=== PATIENT | male | born 1985 | race Caucasian/White ===

== ENCOUNTER 2017-08-16 14:42 | Emergency (ER) | payer SELFPAY ==
[2017-08-16] MEDS ORDERED: Sodium Chloride 0.9% 10 ML Syringe FLUSH PRN (14:45)
[2017-08-16] MEDS ORDERED: Sodium Chloride 0.9% 1,000 ML IV SCH (14:45)
[2017-08-16] MEDS ORDERED: Haloperidol Lactate 5 MG/ML SDV IVPUSH ONE (14:48)
[2017-08-16] MEDS ORDERED: Haloperidol Lactate 5 MG/ML SDV ONE ×2 (14:53→15:03)
[2017-08-16] MEDS ORDERED: LORazepam 2 MG/ML MDV IVPUSH ONE (14:57)
[2017-08-16] MEDS ORDERED: LORazepam 2 MG/ML MDV ONE (15:03)
[2017-08-16] MEDS ORDERED: Sodium Chloride 0.9% 2,000 ML IV ONE (15:11)
[2017-08-16] MEDS ORDERED: Haloperidol Lactate 5 MG/ML SDV IVPUSH STA (15:43)
[2017-08-16] MEDS ORDERED: Sodium Chloride 0.9% 1,000 ML ONE (16:07)
--- NOTE | 2017-08-16 17:46 | EDM.PDOC ---
ED HPI GENERAL MEDICAL PROBLEM - General Chief Complaint: Chest Pain Stated Complaint: [facility] Time Seen by Provider: 08/16/17 14:49 Source of Information: Reports: EMS History Limitations: Reports: Altered Mental Status - History of Present Illness INITIAL COMMENTS - FREE TEXT/NARRATIVE: The patient presents by [place] [facility] for chest pain. He was at a house in [place] with lots of people that are not family. He was holding his chest and combative. They assumed he was having a heart attack so they called 911. Paramedics could not get an EKG because he was moving around and not cooperating. He was given 2mg of versed intranasal. He does have an IV. He was not cooperative in the ambulance but he was talking. When he got to the ER , he would localize to pain but he was not talking and he did not have his eyes open. The paramedics say the house he was at was known for meth. Onset: Gradual Duration: Hour(s): Location: Reports: Chest Severity: Severe Improves with: Reports: None Worsens with: Reports: None Associated Symptoms: Reports: Chest Pain - Related Data Allergies Allergy/AdvReac Type Severity Reaction Status Date / Time No Known Allergies Allergy Verified 07/15/15 17:20 Home Meds: Home Meds Azithromycin [Z-Tomasz] 250 mg PO ASDIRECTED #1 dosepk 04/27/16 [Rx] Dextromethorphan/guaiFENesin [Robitussin DM] 10 ml PO TID #1 cup 04/27/16 [Rx] Potassium Chloride 20 meq PO DAILY #30 tablet.er 08/16/17 [Rx] Past Medical History - Past Health History Medical/Surgical History: Denies Medical/Surgical History Respiratory History: Reports: Pneumonia, Recurrent Social & Family History - Tobacco Use Smoking Status *Q: Unknown Ever Smoked Years of Tobacco use: 10 Packs/Tins Daily: 5 Second Hand Smoke Exposure: No - Alcohol Use Days Per Week of Alcohol Use: 0 - Recreational Drug Use Recreational Drug Use: No Recreational Drug Type: Reports: Methamphetamine Recreational Drug Use Frequency: Monthly ED ROS GENERAL - Review of Systems Review Of Systems: Unable To Obtain ED EXAM, GENERAL - Physical Exam Exam: See Below Exam Limited By: Altered Mental Status General Appearance: Obtunded Ears: Normal External Exam Nose: Normal Inspection Throat/Mouth: Other (Dry mucus membranes with what appears to be dark stains from dip) Head: Atraumatic, Normocephalic Neck: Normal Inspection Respiratory/Chest: No Respiratory Distress, Lungs Clear, Normal Breath Sounds Cardiovascular: Regular Rate, Rhythm, No Edema, No Murmur GI/Abdominal: Soft, Non-Tender, No Organomegaly, No Mass Back Exam: Normal Inspection Extremities: Normal Inspection Neurological: Other (Obtuded) EKG INTERPRETATION EKG Date: 08/16/17 Time: 03:04 Rhythm: NSR Rate (Beats/Min): 97 [place]: Normal P-Wave: Present QRS: Normal ST-T: Normal QT: Prolonged Course - Vital Signs Last Recorded V/S: Last Vital Signs Temp 97.2 F 08/16/17 15:12 Pulse 74 08/16/17 18:16 Resp 20 08/16/17 18:16 BP 105/56 L 08/16/17 18:15 Pulse Ox 97 08/16/17 18:16 - Orders/Labs/Meds Orders: Active Orders 24 hr Category Date Time Status Cardiac Monitoring [RC] . DIRECTED Care 08/16/17 14:45 Active EKG Documentation Completion [RC] ASDIRECTED Care 08/16/17 15:10 Inactive EKG Documentation Completion [RC] STAT Care 08/16/17 14:47 Active Peripheral IV Care [RC] . DIRECTED Care 08/16/17 14:47 Active Chest 1V Frontal [CR] Stat Exams 08/16/17 14:47 Taken Potassium Chloride [KCl 10 MEQ in Water 100 ML] 10 meq Med 08/16/17 18:15 Active Premix Bag 1 bag IV Q1H Sodium Chloride 0.9% [Normal Saline] 1,000 ml Med 08/16/17 14:45 Active IV ASDIRECTED Sodium Chloride 0.9% [Saline Flush] Med 08/16/17 14:45 Active 10 ml FLUSH ASDIRECTED PRN Peripheral IV Insertion Adult [OM.PC] Stat Oth 08/16/17 14:45 Ordered EKG 12 Lead [EK] Stat Ther 08/16/17 15:10 Stop Req Medication Orders Sodium Chloride (Normal Saline) 1,000 mls @ 125 mls/hr IV ASDIRECTED ESME Last Admin: 08/16/17 16:13 Dose: 125 mls/hr Potassium Chloride 10 meq/ (Premix) 100 mls @ 100 mls/hr IV Q1H ESME Stop: 08/16/17 22:14 Last Admin: 08/16/17 18:22 Dose: 100 mls/hr Sodium Chloride (Saline Flush) 10 ml FLUSH ASDIRECTED PRN PRN Reason: Keep Vein Open Last Admin: 08/16/17 15:20 Dose: 10 ml Labs: Laboratory Tests 08/16/17 08/16/17 08/16/17 Range/Units 15:10 15:10 15:10 WBC 5.87 (4.23-9.07) K/mm3 RBC 4.57 L (4.63-6.08) M/mm3 Hgb 14.3 (13.7-17.5) gm/L Hct 40.0 L (40.1-51.0) % MCV 87.5 (79.0-92.2) fl MCH 31.3 (25.7-32.2) pg MCHC 35.8 H (32.2-35.5) g/dl RDW Std Deviation 38.1 (35.1-43.9) fL Plt Count 257 (163-337) K/mm3 MPV 10.1 (9.4-12.3) fl Neut % (Auto) 61.7 (34.0-67.9) % Lymph % (Auto) 23.7 (21.8-53.1) % [place] % (Auto) 11.9 (5.3-12.2) % Eos % (Auto) 2.0 (0.8-7.0) Baso % (Auto) 0.5 (0.1-1.2) % Neut # (Auto) 3.62 (1.78-5.38) K/mm3 Lymph # (Auto) 1.39 (1.32-3.57) K/mm3 [place] # (Auto) 0.70 (0.30-0.82) K/mm3 Eos # (Auto) 0.12 (0.04-0.54) K/mm3 Baso # (Auto) 0.03 (0.01-0.08) K/mm3 D-Dimer, Quantitative 0.19 (0.19-0.59) mg/L Sodium 138 (136-145) mEq/L Potassium 2.9 L (3.5-5.1) mEq/L Chloride 102 (98-107) mEq/L Carbon Dioxide 22 (21-32) mEq/L Anion Gap 16.9 H (5-15) BUN 17 (7-18) mg/dL Creatinine 1.1 (0.7-1.3) mg/dL Est Cr Clr Drug Dosing 100.47 mL/min Estimated GFR (MDRD) > 60 (>60) mL/min BUN/Creatinine Ratio 15.5 (14-18) Glucose 105 (74-106) mg/dL Calcium 8.0 L (8.5-10.1) mg/dL Total Bilirubin 1.5 H (0.2-1.0) mg/dL AST 35 (15-37) U/L ALT 60 (16-63) U/L Alkaline Phosphatase 65 (46-116) U/L Troponin I < 0.017 (0.00-0.056) ng/mL Total Protein 7.0 (6.4-8.2) g/dl Albumin 3.6 (3.4-5.0) g/dl Globulin 3.4 gm/dL Albumin/Globulin Ratio 1.1 (1-2) Urine Opiates Screen (NEGATIVE) Ur Buprenorphine Scrn (NEGATIVE) Ur Oxycodone Screen (NEGATIVE) Urine Methadone Screen (NEGATIVE) Ur Propoxyphene Screen (NEGATIVE) Ur Barbiturates Screen (NEGATIVE) Ur Tricyclics Screen (NEGATIVE) Ur Phencyclidine Scrn (NEGATIVE) Ur Amphetamine Screen (NEGATIVE) U Methamphetamines Scrn (NEGATIVE) U Benzodiazepines Scrn (NEGATIVE) U Cocaine Metab Screen (NEGATIVE) U Marijuana (THC) Screen (NEGATIVE) Ethyl Alcohol 0.00 (0.00) gm% 08/16/17 Range/Units 16:08 WBC (4.23-9.07) K/mm3 RBC (4.63-6.08) M/mm3 Hgb (13.7-17.5) gm/L Hct (40.1-51.0) % MCV (79.0-92.2) fl MCH (25.7-32.2) pg MCHC (32.2-35.5) g/dl RDW Std Deviation (35.1-43.9) fL Plt Count (163-337) K/mm3 MPV (9.4-12.3) fl Neut % (Auto) (34.0-67.9) % Lymph % (Auto) (21.8-53.1) % [place] % (Auto) (5.3-12.2) % Eos % (Auto) (0.8-7.0) Baso % (Auto) (0.1-1.2) % Neut # (Auto) (1.78-5.38) K/mm3 Lymph # (Auto) (1.32-3.57) K/mm3 [place] # (Auto) (0.30-0.82) K/mm3 Eos # (Auto) (0.04-0.54) K/mm3 Baso # (Auto) (0.01-0.08) K/mm3 D-Dimer, Quantitative (0.19-0.59) mg/L Sodium (136-145) mEq/L Potassium (3.5-5.1) mEq/L Chloride (98-107) mEq/L Carbon Dioxide (21-32) mEq/L Anion Gap (5-15) BUN (7-18) mg/dL Creatinine (0.7-1.3) mg/dL Est Cr Clr Drug Dosing mL/min Estimated GFR (MDRD) (>60) mL/min BUN/Creatinine Ratio (14-18) Glucose (74-106) mg/dL Calcium (8.5-10.1) mg/dL Total Bilirubin (0.2-1.0) mg/dL AST (15-37) U/L ALT (16-63) U/L Alkaline Phosphatase (46-116) U/L Troponin I (0.00-0.056) ng/mL Total Protein (6.4-8.2) g/dl Albumin (3.4-5.0) g/dl Globulin gm/dL Albumin/Globulin Ratio (1-2) Urine Opiates Screen Negative (NEGATIVE) Ur Buprenorphine Scrn Negative (NEGATIVE) Ur Oxycodone Screen Negative (NEGATIVE) Urine Methadone Screen Negative (NEGATIVE) Ur Propoxyphene Screen Negative (NEGATIVE) Ur Barbiturates Screen Negative (NEGATIVE) Ur Tricyclics Screen Negative (NEGATIVE) Ur Phencyclidine Scrn Negative (NEGATIVE) Ur Amphetamine Screen Presumptive positive H (NEGATIVE) U Methamphetamines Scrn Presumptive positive H (NEGATIVE) U Benzodiazepines Scrn Negative (NEGATIVE) U Cocaine Metab Screen Negative (NEGATIVE) U Marijuana (THC) Screen Presumptive positive H (NEGATIVE) Ethyl Alcohol (0.00) gm% Meds: Medications Generic Name Dose Route Start Last Admin Trade Name Freq PRN Reason Stop Dose Admin Sodium Chloride 1,000 mls @ 125 mls/hr 08/16/17 14:45 08/16/17 16:13 Normal Saline IV 125 mls/hr ASDIRECTED ESME Administration Potassium Chloride 10 meq/ 100 mls @ 100 mls/hr 08/16/17 18:15 08/16/17 18:22 Premix IV 08/16/17 22:14 100 mls/hr Q1H ESME Administration Sodium Chloride 10 ml 08/16/17 14:45 08/16/17 15:20 Saline Flush FLUSH 10 ml ASDIRECTED PRN Administration Keep Vein Open Discontinued Medications Generic Name Dose Route Start Last Admin Trade Name Marcelino PRN Reason Stop Dose Admin Haloperidol Lactate 5 mg 08/16/17 14:48 08/16/17 15:00 Haldol IVPUSH 08/16/17 14:49 5 mg ONETIME ONE Administration Haloperidol Lactate Confirm 08/16/17 14:53 08/16/17 15:20 Haldol Administered 08/16/17 14:54 Not Given Dose 5 mg .ROUTE .STK-MED ONE Haloperidol Lactate Confirm 08/16/17 15:03 08/16/17 15:20 Haldol Administered 08/16/17 15:04 Not Given Dose 5 mg .ROUTE .STK-MED ONE Haloperidol Lactate 5 mg 08/16/17 15:43 08/16/17 14:50 Haldol IVPUSH 08/16/17 15:44 5 mg ONETIME STA Administration Sodium Chloride 2,000 mls @ 1,000 mls/hr 08/16/17 15:11 08/16/17 15:00 Normal Saline IV 08/16/17 17:10 1,000 mls/hr ONETIME ONE Administration Sodium Chloride Confirm 08/16/17 16:07 08/16/17 16:14 Normal Saline Administered 08/16/17 16:08 Not Given Dose 1,000 mls @ as directed .ROUTE .STK-MED ONE Lorazepam Confirm 08/16/17 15:03 08/16/17 15:20 Ativan Administered 08/16/17 15:04 Not Given Dose 2 mg .ROUTE .STK-MED ONE Lorazepam 2 mg 08/16/17 14:57 08/16/17 15:00 Ativan IVPUSH 08/16/17 14:58 2 mg ONETIME ONE Administration - Re-Assessments/Exams Free Text/Narrative Re-Assessment/Exam: 08/16/17 17:46 I ordered an IV NS 2L bolus, EKG, CXR, and labs. The patient woke up but he was confused and combative. I was worried about his safety and the safety of my staff so I ordered haldol 10mg IV and ativan 2mg IV. That did calm him down. His EKG shows a NSR with no acute changes. His CBC is negative. His D- dimer was negative. His K was low at 2.9. His anion gap was 16.9. His troponin was negative. His creatinine was normal at 1.1. His UDS was presumptive positive for meth and amphetamines and marijuana. His ETOH is negative. 08/16/17 19:10 He is sleeping now. I will let him rest and discharge him home after awhile. Departure - Departure Time of Disposition: 19:10 Disposition: Home, Self-Care 01 Condition: Good Clinical Impression: Methamphetamine abuse, Methamphetamine intoxication, Hypokalemia Prescriptions: Potassium Chloride 20 meq PO DAILY #30 tablet.er Referrals: PCP,None [Primary Care Provider] - Elpidio Armstrong [Physician] - Forms: ED Department Discharge Additional Instructions: Take the potassium daily. Have your potassium checked in 1 week. Please return if you are worse. Stop taking methamphetamines. - My Orders Last 24 Hours: My Active Orders 08/16/17 14:45 Cardiac Monitoring [RC] . DIRECTED Sodium Chloride 0.9% [Normal Saline] 1,000 ml IV ASDIRECTED Sodium Chloride 0.9% [Saline Flush] 10 ml FLUSH ASDIRECTED PRN Peripheral IV Insertion Adult [OM.PC] Stat 08/16/17 14:47 EKG Documentation Completion [RC] STAT Peripheral IV Care [RC] . DIRECTED Chest 1V Frontal [CR] Stat 08/16/17 15:10 EKG Documentation Completion [RC] ASDIRECTED EKG 12 Lead [EK] Stat 08/16/17 18:15 Potassium Chloride [KCl 10 MEQ in Water 100 ML] 10 meq Premix Bag 1 bag IV Q1H - Assessment/Plan Last 24 Hours: My Active Orders 08/16/17 14:45 Cardiac Monitoring [RC] . DIRECTED Sodium Chloride 0.9% [Normal Saline] 1,000 ml IV ASDIRECTED Sodium Chloride 0.9% [Saline Flush] 10 ml FLUSH ASDIRECTED PRN Peripheral IV Insertion Adult [OM.PC] Stat 08/16/17 14:47 EKG Documentation Completion [RC] STAT Peripheral IV Care [RC] . DIRECTED Chest 1V Frontal [CR] Stat 08/16/17 15:10 EKG Documentation Completion [RC] ASDIRECTED EKG 12 Lead [EK] Stat 08/16/17 18:15 Potassium Chloride [KCl 10 MEQ in Water 100 ML] 10 meq Premix Bag 1 bag IV Q1H
[2017-08-16] MEDS: Potassium Chloride 10 MEQ in Premix Bag 1 BAG IV SCH ×4 (18:22→21:25)
[2017-08-17 02:23] VITALS: BP 106/58
--- NOTE | 2017-08-17 13:02 | CR ---
Chest: Portable supine view of the chest was obtained. Comparison: Prior chest x-ray of 04/27/16. Heart size and mediastinum are normal. Lungs are clear. Minimal scoliosis is noted within the spine. No acute bony abnormality is seen. Impression: 1. Nothing acute is seen on portable supine chest x-ray. Diagnostic code #2
== END 2017-08-17 08:46 | disposition home or self-care (01) ==
LOC: JD.ED 14:42
DX: E87.6 Hypokalemia (principal); F15.129 Other stimulant abuse with intoxication, unspecified; Z87.01 Personal history of pneumonia (recurrent); Z79.899 Other long term (current) drug therapy
CPT/HCPCS: 36415; 71045; 80053; 80306; 84484; 85025; 85379; 93005; 96361; 96365; 96366; 96375; 99285; G0480; J1630; J2060; J3480; J7040; J7050; P9612

== ENCOUNTER 2018-11-18 13:52 | Day surgery (SDC) | payer SELFPAY ==
[2018-11-18] MEDS ORDERED: LORazepam 2 MG/ML SDV IVPUSH ONE (14:27)
[2018-11-18] MEDS ORDERED: HYDROmorphone 1 MG/ML Syringe IVPUSH ONE (14:27)
[2018-11-18] MEDS ORDERED: Diphtheria,Pertussis(Acell),Tetanus Vaccine 0.5 ML Syringe IM ONE (14:28)
[2018-11-18] MEDS ORDERED: Metoclopramide 10 MG/2 ML SDV IVPUSH ONE (14:28)
[2018-11-18] MEDS ORDERED: Sodium Chloride 0.9% 1,000 ML IV SCH (14:30)
[2018-11-18] MEDS ORDERED: cefTRIAXone 2 GM in Sodium Chloride 0.9% 100 ML IV SCH (14:30)
--- NOTE | 2018-11-18 14:31 | EDM.PDOC ---
ED HPI GENERAL MEDICAL PROBLEM - General Chief Complaint: Bite:Animal, Insect Stated Complaint: ATTACKED BY A PIT BULL Time Seen by Provider: 11/18/18 14:25 Source of Information: Reports: Patient History Limitations: Reports: No Limitations - History of Present Illness INITIAL COMMENTS - FREE TEXT/NARRATIVE: 33-year-old male presents to the ED after being attacked by people in his yard while he was out doing yard work. Not sure whose pit bull it is. Police on scene and animal control is trying to catch the animal for quarantine purposes. Patient had a friend who pulled the dog away by grabbing its collar. Mr. Christine suffered deep bites to the anterior medial aspects of both thighs worse on the right side as compared to the left. In tissue from the aggressive dog bite. No evidence of arterial bleeding from the right thigh. Numerous puncture wounds and one that will require repair on the left medial thigh. He is unsure when his last tetanus diphtheria pertussis vaccine would've been updated. He has no known allergies. He states he has a family history of penicillin allergy. Onset: Today Onset Date: 11/18/18 Onset Time: 13:50 Duration: Minutes: Location: Reports: Lower Extremity, Left (Anterior medial left proximal thigh), Lower Extremity, Right (Anterior medial right proximal thigh.) Quality: Reports: Ache, Burning, Throbbing Severity: Severe Improves with: Reports: None (9 out of 10) Worsens with: Reports: None Context: Reports: Trauma (Attacked by a pit bulldog that is unknown to him.). Denies: Activity, Exercise, Lifting, Sick Contact Associated Symptoms: Reports: Other (Denies any injuries to his hands.) Treatments [employer] TECHNICIAN: Reports: Other (see below) (None.) Right Upper Leg Pain Score (Numeric/FACES): 10 Left Upper Leg Pain Score (Numeric/FACES): 10 - Related Data Allergies Allergy/AdvReac Type Severity Reaction Status Date / Time No Known Allergies Allergy Verified 07/15/15 17:20 Home Meds: Home Meds . [No Known Home Meds] 11/18/18 [History] Past Medical History - Past Health History Medical/Surgical History: Denies Medical/Surgical History Respiratory History: Reports: Pneumonia, Recurrent Social & Family History - Tobacco Use Smoking Status *Q: Current Every Day Smoker Years of Tobacco use: 13 Packs/Tins Daily: 0.5 - Caffeine Use Caffeine Use: Reports: Coffee, Soda, Tea - Recreational Drug Use Recreational Drug Use: No Recreational Drug Type: Reports: Inhalants (Glues, Solvents, Aerosols), Other ( see below) (Patient admits to huffing since age 14. States he's been clean for the last 6 weeks.) - Living Situation & Occupation Living situation: Reports: Single (Part-time employed.) Occupation: Employed ED ROS GENERAL - Review of Systems Review Of Systems: See Below Constitutional: Reports: No Symptoms HEENT: Reports: No Symptoms Respiratory: Reports: No Symptoms Cardiovascular: Reports: No Symptoms Endocrine: Reports: No Symptoms GI/Abdominal: Reports: No Symptoms : Reports: No Symptoms Musculoskeletal: Reports: Other (Acute injuries to the skin subcutaneous tissue down to the muscle medial aspect of right thigh) Skin: Reports: Other (Dog bites to the knee anterior medial aspect of both thighs.) Neurological: Reports: No Symptoms Hematologic/Lymphatic: Reports: No Symptoms Immunologic: Reports: No Symptoms ED EXAM, ANIMAL BITE - Physical Exam Exam: See Below Exam Limited By: No Limitations General Appearance: Alert, Moderate Distress (Patient is extremely apprehensive anxious and distraught. Claims pain is 10 out of 10.) Eye Exam: Bilateral Eye: Normal Inspection Ears: Normal External Exam Nose: Normal Inspection Throat/Mouth: Normal Inspection, Normal Lips, Normal Oropharynx Head: Atraumatic, Normocephalic Neck: Normal Inspection, Supple, Non-Tender, Full Range of Motion. No: Lymphadenopathy (L), Lymphadenopathy (R) Respiratory/Chest: No Respiratory Distress, Lungs Clear, Normal Breath Sounds, No Accessory Muscle Use, Respiratory Distress Cardiovascular: Normal Peripheral Pulses, Regular Rate, Rhythm, No Edema, No Gallop, No Murmur, No Rub GI/Abdominal: Normal Bowel Sounds, Soft, Non-Tender, No Organomegaly, No Distention, No Abnormal Bruit, No Mass, Pelvis Stable (Male) Exam: Other (No injuries to his genitals.) Back Exam: Normal Inspection, Full Range of Motion. No: CVA Tenderness (L), CVA Tenderness (R) Extremities: Other (Patient has dog bites to the medial anterior aspect of both thighs. On the right side the there is a open deep avulsion injury down to the fascia of the medial hamstring I suspect. No arterial bleeding appreciated. The wound is approximately 8 cm in length by 5 cm in width. There are multiple other small puncture wounds in the posterior aspect of the thigh. On the left side there is an open wound approximately 2 cm x 1 cm with multiple puncture wounds to the medial posterior thigh from dog bite. Patient has good pulses to both feet.) Neurological: Alert, Oriented, CN II-XII Intact, Normal Cognition Psychiatric: Normal Affect, Normal Mood Skin Exam: Normal Color, Warm/Dry Course - Vital Signs Last Recorded V/S: Last Vital Signs Temp 36.7 C 11/18/18 14:07 Pulse 100 11/18/18 14:07 Resp 20 11/18/18 14:07 BP 136/85 11/18/18 14:07 Pulse Ox 98 11/18/18 14:07 - Orders/Labs/Meds Orders: Active Orders 24 hr Category Date Time Status Notify Provider Consults [RC] ASDIRECTED Care 11/18/18 15:12 Active Vaccines to be Administered [RC] PER UNIT ROUTINE Care 11/18/18 14:28 Active Consult to Physician [CONS] Urgent Cons 11/18/18 15:10 Active CBC WITH MANUAL DIFF [HEME] Stat Lab 11/18/18 14:49 Ordered COMPREHENSIVE METABOLIC PN,CMP [CHEM] Stat Lab 11/18/18 14:49 Ordered DRUG SCREEN, URINE [URCHEM] Stat Lab 11/18/18 14:49 Ordered Sodium Chloride 0.9% [Normal Saline] 1,000 ml Med 11/18/18 14:30 Active IV ASDIRECTED cefTRIAXone [Rocephin] 2 gm Med 11/18/18 14:30 Active Sodium Chloride 0.9% [Normal Saline] 100 ml IV Q24H Medication Orders Sodium Chloride (Normal Saline) 1,000 mls @ 150 mls/hr IV ASDIRECTED ESME Last Admin: 11/18/18 14:30 Dose: 150 mls/hr Ceftriaxone Sodium 2 gm/ (Sodium Chloride) 100 mls @ 200 mls/hr IV Q24H ESME Last Admin: 11/18/18 15:01 Dose: 200 mls/hr Meds: Medications Generic Name Dose Route Start Last Admin Trade Name Freq PRN Reason Stop Dose Admin Sodium Chloride 1,000 mls @ 150 mls/hr 11/18/18 14:30 11/18/18 14:30 Normal Saline IV 150 mls/hr ASDIRECTED ESME Administration Ceftriaxone Sodium 2 gm/ 100 mls @ 200 mls/hr 11/18/18 14:30 11/18/18 15:01 Sodium Chloride IV 200 mls/hr Q24H ESME Administration Discontinued Medications Generic Name Dose Route Start Last Admin Trade Name Marcelino PRN Reason Stop Dose Admin Diphtheria/Tetanus/Acell Pertussis 0.5 ml 11/18/18 14:28 11/18/18 15:00 Adacel IM 11/18/18 14:29 0.5 ml .ONCE ONE Administration Hydromorphone HCl 1 mg 11/18/18 14:27 11/18/18 14:39 Dilaudid IVPUSH 11/18/18 14:28 1 mg ONETIME ONE Administration Lorazepam 1 mg 11/18/18 14:27 11/18/18 14:36 Ativan IVPUSH 11/18/18 14:28 1 mg ONETIME ONE Administration Metoclopramide HCl 10 mg 11/18/18 14:28 11/18/18 14:34 Reglan IVPUSH 11/18/18 14:29 10 mg ONETIME ONE Administration - Radiology Interpretation Free Text/Narrative:: 33-year-old male reports to the ED after being attacked by a pit bull dog in his yard. The dog apparently is unknown to him. Police and animal control her on scene and are trying to quarantine the dog. Patient states his friend came out of the house and was able to pull the dog away from him. Police are here in the ED. Plan IV normal saline at 150 mils per hour. Will be given Rocephin 2 g IV. Tetanus diphtheria and pertussis vaccine will be updated. Owing to ask the on-call surgeon to have a look at his wounds is that he may require going to the operative room to have them washed out thoroughly and debrided and partially closed. At this time is extremely anxious. Will give Dilaudid 1 mg IV for pain with Ativan 1 mg for anxiety and Reglan 10 mg for nausea. - Re-Assessments/Exams Free Text/Narrative Re-Assessment/Exam: 11/18/18 14:55 has seen him in the ED and will be taking him to the OR for irrigation and debridement and partial closure of wounds from pit bull dog attack. Departure - Departure Time of Disposition: 14:53 Disposition: DC/Tfer to [facility] Access 66 Condition: Fair Clinical Impression: Dog bite of right thigh Qualifiers: Encounter type: initial encounter Qualified Code(s): S71.151A - Open bite, right thigh, initial encounter Dog bite of left thigh Qualifiers: Encounter type: initial encounter Qualified Code(s): S71.152A - Open bite, left thigh, initial encounter - Discharge Information *PRESCRIPTION DRUG MONITORING PROGRAM REVIEWED*: No *COPY OF PRESCRIPTION DRUG MONITORING REPORT IN PATIENT SAFIA: No Instructions: Animal Bite, Adult, [id number], Wound Care, Adult Referrals: PCP,None [Primary Care Provider] - Forms: ED Department Discharge Additional Instructions: Evaluation the emergency room in regards to multiple deep wounds to the anterior medial aspect of both thighs from a pimple dog attack. His is resulted in a deep open wound to the anterior medial aspect of your right thigh that needs to be washed out and debrided and then partially closed under anesthetic. Similarly wounds to the left leg and thigh need to be cleansed and debrided but they are less severe and less deep. - My Orders Last 24 Hours: My Active Orders 11/18/18 14:28 Vaccines to be Administered [RC] PER UNIT ROUTINE 11/18/18 14:30 Sodium Chloride 0.9% [Normal Saline] 1,000 ml IV ASDIRECTED cefTRIAXone [Rocephin] 2 gm Sodium Chloride 0.9% [Normal Saline] 100 ml IV Q24H 11/18/18 14:49 CBC WITH MANUAL DIFF [HEME] Stat COMPREHENSIVE METABOLIC PN,CMP [CHEM] Stat DRUG SCREEN, URINE [URCHEM] Stat 11/18/18 15:10 Consult to Physician [CONS] Urgent 11/18/18 15:12 Notify Provider Consults [RC] ASDIRECTED - Assessment/Plan Last 24 Hours: My Active Orders 11/18/18 14:28 Vaccines to be Administered [RC] PER UNIT ROUTINE 11/18/18 14:30 Sodium Chloride 0.9% [Normal Saline] 1,000 ml IV ASDIRECTED cefTRIAXone [Rocephin] 2 gm Sodium Chloride 0.9% [Normal Saline] 100 ml IV Q24H 11/18/18 14:49 CBC WITH MANUAL DIFF [HEME] Stat COMPREHENSIVE METABOLIC PN,CMP [CHEM] Stat DRUG SCREEN, URINE [URCHEM] Stat 11/18/18 15:10 Consult to Physician [CONS] Urgent 11/18/18 15:12 Notify Provider Consults [RC] ASDIRECTED
[2018-11-18] MEDS ORDERED: fentaNYL 250 MCG/5 ML SDV ONE (15:39)
[2018-11-18] MEDS ORDERED: Propofol 200 MG/20 ML SDV ONE (15:39)
[2018-11-18] MEDS ORDERED: Rocuronium 50 MG/5 ML Vial ONE (15:39)
[2018-11-18] MEDS ORDERED: Midazolam 1 MG/ML 2 ML SDV ONE (15:39)
[2018-11-18] MEDS ORDERED: Ondansetron 4 MG/2 ML SDV ONE (15:39)
[2018-11-18] MEDS ORDERED: Lidocaine 1% 30 ML SDV ONE (15:40)
[2018-11-18] MEDS ORDERED: Lidocaine 1% 4 ML ONE (15:40)
[2018-11-18] MEDS ORDERED: Lactated Ringers 1,000 ML ONE (16:19)
[2018-11-18] MEDS ORDERED: Neostigmine Methylsulfate 1 MG/ML 5 ML Syringe ONE (16:45)
[2018-11-18] MEDS ORDERED: fentaNYL 100 MCG/2 ML SDV IVPUSH PRN (16:59)
[2018-11-18] MEDS ORDERED: HYDROmorphone 0.5 MG/0.5 ML Syringe IVPUSH PRN (16:59)
[2018-11-18] MEDS ORDERED: Ketorolac 30 MG/ML SDV IVPUSH PRN (16:59)
--- NOTE | 2018-11-18 17:01 | PCM.POSTAN ---
POST ANESTHESIA ASSESSMENT - MENTAL STATUS Mental Status: Alert, Oriented - VITAL SIGNS Pulse Rate: 103 SaO2: 98 Resp Rate: 15 Blood Pressure: 109/72 Temperature: 36.3 C - RESPIRATORY Respiratory Status: Respiratory Rate WNL, Airway Patent, O2 Saturation Stable, Supplemental Oxygen - CARDIOVASCULAR CV Status: Pulse Rate WNL, Blood Pressure Stable - GASTROINTESTINAL GI Status: No Symptoms - PAIN Pain Score: 0 - POST OP HYDRATION Hydration Status: Adequate & Stable - OBSERVATIONS Free Text/Narrative:: no anesthesia complications noted
--- NOTE | 2018-11-18 17:07 | PCM.PREANE ---
Preanesthetic Assessment - Anesthesia/Transfusion/Family Hx Anesthesia History: No Prior Anesthesia Family History of Anesthesia Reaction: No Transfusion History: No Prior Transfusion(s) - Review of Systems General: Weakness, Fatigue, Malaise Pulmonary: Sputum, Other ("chronic lungs from huffing") Cardiovascular: Palpitations (history), Lightheadedness, Other ("I have multiple times and shocked back to life") Gastrointestinal: No Symptoms Neurological: Confusion, Headache, Trouble Speaking, Gait Disturbance ("pain down legs when I walk") Other: Reports: Depression - Physical Assessment NPO Status Date: 11/18/18 NPO Status Time: 12:30 Pulse: 103 O2 Sat by Pulse Oximetry: 98 Respiratory Rate: 15 Blood Pressure: 109/72 Temperature: 36.3 C Vital Signs: Last Vital Signs Temp 36.3 C 11/18/18 17:01 Pulse 103 H 11/18/18 17:01 Resp 15 11/18/18 17:01 BP 109/72 11/18/18 17:01 Pulse Ox 98 11/18/18 17:01 Height: 1.8 m Weight: 74.843 kg ASA Class: 3E Mental Status: Other (answers questions inapproprately) Airway Class: Mallampati = 1 Dentition: Reports: Missing Tooth/Teeth Thyro-Mental Finger Breadths: 3 Mouth Opening Finger Breadths: 3 ROM/Head Extension: Full Lungs: Clear to Auscultation, Normal Respiratory Effort Cardiovascular: Regular Rate, Regular Rhythm - Allergies Allergies/Adverse Reactions: Allergies Allergy/AdvReac Type Severity Reaction Status Date / Time No Known Allergies Allergy Verified 07/15/15 17:20 - Blood Blood Available: No Product(s) Available: None - Anesthesia Plan Pre-Op Medication Ordered: None - Acknowledgements Anesthesia Type Planned: General Anesthesia Pt an Appropriate Candidate for the Planned Anesthesia: Yes Alternatives and Risks of Anesthesia Discussed w Pt/Guardian: Yes Pt/Guardian Understands and Agrees with Anesthesia Plan: Yes PreAnesthesia Questionnaire - Past Health History Medical/Surgical History: Denies Medical/Surgical History Respiratory History: Reports: Pneumonia, Recurrent - SUBSTANCE USE Smoking Status *Q: Current Every Day Smoker Tobacco Use Within Last Twelve Months: Cigarettes Recreational Drug Use History: No Recreational Drug Type: Reports: Inhalants (Glues, Solvents, Aerosols), Other ( see below) (Patient admits to huffing since age 14. States he's been clean for the last 6 weeks.) - HOME MEDS Home Medications: Home Meds . [No Known Home Meds] 11/18/18 [History] - CURRENT (IN HOUSE) MEDS Current Meds: Current Medications Fentanyl (Sublimaze) 50 mcg IVPUSH Q5M PRN PRN Reason: Pain Hydromorphone HCl (Dilaudid) 0.5 mg IVPUSH Q10M PRN PRN Reason: Pain (severe 7-10) Sodium Chloride (Normal Saline) 1,000 mls @ 150 mls/hr IV ASDIRECTED [facility] Last Admin: 11/18/18 14:30 Dose: 150 mls/hr Ceftriaxone Sodium 2 gm/ (Sodium Chloride) 100 mls @ 200 mls/hr IV Q24H [facility] Last Admin: 11/18/18 15:01 Dose: 200 mls/hr Ketorolac Tromethamine (Toradol) 30 mg IVPUSH ONETIME PRN PRN Reason: Pain Discontinued Medications Diphtheria/Tetanus/Acell Pertussis (Adacel) 0.5 ml IM .ONCE ONE Stop: 11/18/18 14:29 Last Admin: 11/18/18 15:00 Dose: 0.5 ml Fentanyl (Sublimaze) Confirm Administered Dose 250 mcg .ROUTE .STK-MED ONE Stop: 11/18/18 15:40 Glycopyrrolate () Confirm Administered Dose 1 mg .ROUTE .STK-MED ONE Stop: 11/18/18 16:46 Hydromorphone HCl (Dilaudid) 1 mg IVPUSH ONETIME ONE Stop: 11/18/18 14:28 Last Admin: 11/18/18 14:39 Dose: 1 mg Lidocaine HCl (Xylocaine-Mpf 1%) Confirm Administered Dose 4 mls @ as directed .ROUTE .STK-MED ONE Stop: 11/18/18 15:41 Lactated Ringer's (Ringers, Lactated) Confirm Administered Dose 1,000 mls @ as directed .ROUTE .STK-MED ONE Stop: 11/18/18 16:20 Lidocaine HCl (Xylocaine-Mpf 1%) Confirm Administered Dose 30 ml .ROUTE .STK- MED ONE Stop: 11/18/18 15:41 Lorazepam (Ativan) 1 mg IVPUSH ONETIME ONE Stop: 11/18/18 14:28 Last Admin: 11/18/18 14:36 Dose: 1 mg Metoclopramide HCl (Reglan) 10 mg IVPUSH ONETIME ONE Stop: 11/18/18 14:29 Last Admin: 11/18/18 14:34 Dose: 10 mg Midazolam HCl (Versed 1 Mg/Ml) Confirm Administered Dose 2 mg .ROUTE .STK-MED ONE Stop: 11/18/18 15:40 Neostigmine Methylsulfate (Neostigmine) Confirm Administered Dose 5 mg .ROUTE .STK-MED ONE Stop: 11/18/18 16:46 Ondansetron HCl (Zofran) Confirm Administered Dose 4 mg .ROUTE .STK-MED ONE Stop: 11/18/18 15:40 Propofol (Diprivan 20 Ml) Confirm Administered Dose 200 mg .ROUTE .STK-MED ONE Stop: 11/18/18 15:40 Rocuronium [place] (Zemuron) Confirm Administered Dose 50 mg .ROUTE .STK-MED ONE Stop: 11/18/18 15:40
[2018-11-18] MEDS ORDERED: Acetaminophen 325 MG Tab PO ONE (17:31)
--- NOTE | 2018-11-18 18:35 | OR ---
DATE OF OPERATION: 11/18/2018 SURGEON: Lizzy Witt MD PREOPERATIVE DIAGNOSIS: Bilateral inner thigh dog bite. POSTOPERATIVE DIAGNOSIS: Bilateral inner thigh dog bite. OPERATION PERFORMED: 1. Exploration of dog bite. 2. On the right inner thigh dog bite, excisional debridement of small amount of necrotic subcutaneous tissue and skin edges. 3. Tying off small branch of saphenous vein. ANESTHESIA: General with 1% lidocaine instilled in the subcutaneous tissue at the completion of the operating procedure. DRAIN: About 6 inches of 1-inch iodoform into the right wound. ESTIMATED BLOOD LOSS: None. BRIEF HISTORY: This is a 33-year-old male who was attacked by a dog earlier today. He has a gaping wound that measures 4.5 x 2 cm on the right inner thigh. On the left inner thigh, there is a smaller wound of about 2 cm. Otherwise, on the left inner thigh, there were some abrasions. There is no active bleeding at any of them. I had the opportunity to discuss the risks, benefits, and I wanted to surgically explore, clean them up in the operating room. He agreed to proceed. DESCRIPTION OF PROCEDURE: The patient was taken to the operating room and general anesthesia was obtained. We did a time-out preoperatively for exploration of the dog bites. Once they were prepped and draped, I started out by evaluating one in the left inner thigh. Clearly this shows, I was able to place my digit into the wound and I could see that it did track for about 4 cm. I simply enlarged that incision after I injected 1% lidocaine. It only went through the subcutaneous tissue and did not interfere with any of the muscular fascia. I then irrigated that wound with normal saline to the tune of 1 L. I then loosely approximated the edges using 3- 0 Ethibond in interrupted mattress fashion. On the right inner thigh, this wound had been measured as I stated above. Clearly, there was some necrotic fatty tissue. I did an excisional debridement of all the fatty tissue. This did go down to what appears to be the adductor fascia and I was able to explore this, but it did not go very deep into the adductor muscle itself. In fact, there was no necrotic muscle and there was no expanding hematoma and this is well away from the femoral artery. There was a branch of what I believe is probably a part of the saphenous system which I simply tied off with 2-0 silk tie. The skin edges were then debrided back to normal tissue. At this point, I irrigated with actually a liter and half of normal saline using the pulsatile mechanism. There was no foreign body noted and there was no signs of any active bleeding. What I elected to do then was to place an iodoform on the base of the wound and then loosely approximate the cleaned up skin edges using 3-0 Ethibond in interrupted mattress fashion, bringing out the iodoform at the deep side of the wound. This will be removed tomorrow and then hopefully everything will heal nicely from there. Sterile dressings were applied. He tolerated the procedure well. Instructions to the patient will be that he should come back to the clinic tomorrow for dressing change. He can ambulate as he normally would and just use [id number] pain medications for discomfort. He can shower in the morning with these dressings and Tegaderm on, and he should do this before he comes to see me in the morning. I will explain this to his colleagues who brought him to the emergency department. MMODAL /[id number]
[2018-11-18 18:45] VITALS: BP 110/72
--- NOTE | 2018-11-19 07:21 | HP ---
DATE OF ADMISSION: 11/18/2018 CHIEF COMPLAINT: Dog bite. HISTORY OF PRESENT ILLNESS: This is a 33-year-old male who was out working in his yard when suddenly this dog came up and literally grabbed him in the inner thighs. The dog remained attached to his inner thighs and his friend had to remove him. He denies any other areas of being injured. His only complaint is that of his right and left inner thigh where the dog attacked. When he arrived here, he was hemodynamically stable and there was not noted to be any active bleeding from the site. He remained hemodynamically stable. Dr. Romero evaluated the patient and felt the wound of the right inner thigh was so deep and avulsed that he would like additional evaluation. I agreed to see him. When I arrived to the room, the patient is comfortable. He is alert and oriented. He is otherwise in no distress and only complains mostly of his right inner thigh. He states the left inner thigh only has some mild discomfort. He denies any numbness or tingling, but he said it hurts to move his right knee because of the pain in his inner thigh. PAST SURGICAL HISTORY: He is little vague, but he says he has only basically had stitches done in the past. He denies ever being hospitalized for any surgical intervention. ALLERGIES: None. CURRENT MEDICATIONS: None. SOCIAL HISTORY: He is single, but he had an extensive use of drugs starting at age 14 when he was huffing and he was very open about this. He stopped doing that years ago, but has been clean from using other kinds of paraphernalia for about 6 weeks. 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 He looks at me and states he has not used drugs in that period of time. REVIEW OF SYSTEMS: He states that his "head" does not work right because of all the drug use. I do not have a definite history of any seizures or strokes, but he says things just start right up there. No history of thyroid, diabetes, or hepatitis. No history of shortness of breath or cough. He denies having any history of heart attack. He has no history of real diarrhea or urinary problems. He stated that he had some sort of a tooth problem that has subsequently been not treated. FAMILY HISTORY: He is pretty vague about how many brothers and sisters that he has. He states for sure he has 4. His father has of lung disease. PHYSICAL EXAMINATION: NEUROLOGIC: GCS is 15. HEENT: Pupils are equal. MENTAL STATUS: He is a little jittery, but he is fully cooperative. LUNGS: Clear. HEART: Rhythm is regular and I do not hear a murmur. ABDOMEN: Soft. EXTREMITIES: In the left inner thigh, on the midportion there is about a 2.5 cm opening with no pulsatile mass and no active bleeding. On the right inner thigh, there is about a 6 cm gaping wound. It goes down to the fascia. There is no thrill and there is no bruit. I took the Doppler and I could hear superficial femoral artery flow both above and beyond below. There are also palpable dorsalis pedis pulses and posterior tibialis, which I confirmed with the Doppler. These are biphasic. He is able to flex and extend his ankles bilaterally and his knee, although you can see that it hurts on the right side. IMPRESSION AND PLAN: Deep wound of the right inner thigh secondary to a dog bite. I think it would be best to do a surgical exploration of this to fully explore to make sure that there is no necrotic tissue and to really clean this thing out. I clearly discussed with him the risks and benefits to include, but not limited to bleeding, infection, heart attack, , injury to structures not intended, and even that there might be some blood vessel problems even though on my physical exam there is not. I also explained we may have to do more than 1 procedure depending on what we find. Even with these risks, benefits, even offering him a 2nd opinion, he wishes to proceed. Of note, the patient ate 3 Kyr[place] Doran at 1:30, but because this is an emergency, I think that we should move on. At 7 o'clock is when he last had cereal and the only thing since then was those few Kyr[place]z Doran. KARENA /[id number]
== END 2018-11-18 18:25 | disposition home or self-care (01) ==
LOC: JD.ED 13:52 → JD.SDS 15:37
PROVIDERS: ATTEND Surgery
DX: S71.151A Open bite, right thigh, initial encounter (principal); S71.152A Open bite, left thigh, initial encounter; F17.210 Nicotine dependence, cigarettes, uncomplicated; W54.0XXA Bitten by dog, initial encounter
CPT/HCPCS: 20103; 35226; 36415; 80053; 85007; 85027; 90471; 90700; 96361; 96374; 96375; 99284; A9270; J0696; J1170; J1885; J2001; J2060; J2250; J2405; J2704; J2710; J2765; J3010; J7030; J7040; J7120; 00400

== ENCOUNTER 2018-11-19 11:37 | Emergency (ER) | payer SELFPAY ==
[2018-11-19 11:51] VITALS: BP 110/78
--- NOTE | 2018-11-19 12:01 | EDM.PDOC ---
ED HPI GENERAL MEDICAL PROBLEM - General Chief Complaint: General Stated Complaint: DRAINAGE FROM SURGERY Time Seen by Provider: 11/19/18 11:38 - History of Present Illness INITIAL COMMENTS - FREE TEXT/NARRATIVE: 33-year-old male presents to the emergency room for recheck after dog bite yesterday Patient was taken to surgery yesterday by Dr. Witt for cleaning and debridement after being attacked by dog. The patient has wounds on his right inner thigh that has a packing in it and some superficial injuries on his left inner thigh that were cleaned and bandaged. From reviewing his notes he's post a follow-up in the surgery clinic today apparently the patient went to the walk- in clinic and they would not see him for this so he came here. Bilateral Upper Leg Pain Score (Numeric/FACES): 10 - Related Data Allergies Allergy/AdvReac Type Severity Reaction Status Date / Time No Known Allergies Allergy Verified 11/19/18 11:51 Home Meds: Home Meds . [No Known Home Meds] 11/18/18 [History] Past Medical History - Past Health History Medical/Surgical History: Denies Medical/Surgical History Respiratory History: Reports: Pneumonia, Recurrent Social & Family History - Caffeine Use Caffeine Use: Reports: Coffee, Soda, Tea - Living Situation & Occupation Living situation: Reports: Single (Part-time employed.) Occupation: Employed ED ROS GENERAL - Review of Systems Review Of Systems: See Below Constitutional: Reports: No Symptoms Respiratory: Reports: No Symptoms Cardiovascular: Reports: No Symptoms Endocrine: Reports: No Symptoms ED EXAM, GENERAL - Physical Exam Exam: See Below Exam Limited By: Other (Patient is not real clear on what happened yesterday and does not completely understand his discharge instructions) General Appearance: Alert, No Apparent Distress Skin Exam: Other (Examination of the wound site, dressings left in place, does not appear to have significant surrounding erythema he has some expected tenderness with palpation. The patient has some discomfort with ambulation but is getting around okay) Course - Vital Signs Last Recorded V/S: Last Vital Signs Temp 36.7 C 11/19/18 11:47 Pulse 62 11/19/18 11:47 Resp 16 11/19/18 11:47 BP 110/78 11/19/18 11:47 Pulse Ox 100 11/19/18 11:47 - Re-Assessments/Exams Free Text/Narrative Re-Assessment/Exam: 11/19/18 12:[address] Witt she advises taking them to the surgery clinic. Departure - Departure Time of Disposition: 11:58 Disposition: Home, Self-Care 01 Clinical Impression: Dog bite - Discharge Information Instructions: Animal Bite, Adult Referrals: PCP,None [Primary Care Provider] - Forms: ED Department Discharge Additional Instructions: Patient will be taken to the surgery clinic. This is where he was supposed to follow-up today
== END 2018-11-19 12:15 | disposition home or self-care (01) ==
LOC: JD.ED 11:37
DX: Z53.21 Procedure and treatment not carried out due to patient leaving prior to being seen by health care provider (principal)
CPT/HCPCS: 99281

== ENCOUNTER 2019-08-29 20:36 | Emergency (ER) | payer SELFPAY ==
[2019-08-29 20:59] VITALS: BP 133/79; PULSE 127
--- NOTE | 2019-08-29 21:03 | EDM.PDOC ---
ED HPI GENERAL MEDICAL PROBLEM - General Chief Complaint: Laceration Stated Complaint: LACERATION TO ARM Time Seen by Provider: 08/29/19 20:51 Source of Information: Reports: Patient, RN Notes Reviewed History Limitations: Reports: No Limitations - History of Present Illness INITIAL COMMENTS - FREE TEXT/NARRATIVE: Patient is a 34-year-old male who presents to the ED for evaluation of a right arm laceration. Patient states that he was cutting cardboard boxes for a wood stove, and ended up slipping and cutting himself on the right inner forearm. This is in the proximal forearm, and measures around 4 cm by about 1 cm deep. You can see the muscle belly of the forearm. There are scattered smaller superficial half centimeter linear lacerations around the area as well. 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 Patient states he is up-to-date with his tetanus vaccination as he is recently had a few dog bite accidents. Patient is complaining of numbness distal to the injury, he can still move his fingers in all range of motion and has pronation and supination capabilities. He is complaining of mildly decreased strength. Right Arm Pain Score (Numeric/FACES): 10 - Related Data Allergies Allergy/AdvReac Type Severity Reaction Status Date / Time No Known Allergies Allergy Verified 11/19/18 11:51 Home Meds: Home Meds . 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) ED ROS GENERAL - Review of Systems Review Of Systems: See Below Musculoskeletal: Reports: Arm Pain ( at site of laceration and around site) Skin: Reports: Wound (4cm long by 1 cm deep lac to R inner forearm) Neurological: Reports: Numbness (states he cannot feel touch distal to injury) ED EXAM, SKIN/RASH Exam: See Below Exam Limited By: No Limitations General Appearance: Alert, WD/WN, No Apparent Distress, Anxious (does appear very anxious) Eye Exam: Bilateral Eye: EOMI, Normal Inspection, PERRL Ears: Normal External Exam Throat/Mouth: Normal Inspection, Normal Lips, Normal Teeth, Normal Gums, Normal Oropharynx, Normal Voice, No Airway Compromise Head: Atraumatic, Normocephalic Respiratory/Chest: No Respiratory Distress, Lungs Clear, Normal Breath Sounds, No Accessory Muscle Use, Chest Non-Tender Cardiovascular: Normal Peripheral Pulses, Regular Rate, Rhythm, No Murmur Peripheral Pulses: 3+: Radial (L), Radial (R) Neurological: Alert, Oriented, Normal Cognition, Sensory/Motor Deficit (pt states that he cannot feel touch in fingertips distal to injury. Mild decrease in gelatin powder mixer strength.) Psychiatric: Normal Affect, Normal Mood, Anxious (somewhat anxious) Skin: Warm, Dry, Normal Color, No Rash, Wound/Incision (4cm long x 1 cm deep to R inner forearm, you can see the muscle belly. There appear to be 3 smaller 5mm linear superficial lacerations.) ED SKIN PROCEDURES - Laceration/Wound Repair Right Lower Anterior Arm Lac/Wound length In cm: 4 Course - Vital Signs Last Recorded V/S: Last Vital Signs Temp 99.1 F 08/29/19 20:54 Pulse 127 H 08/29/19 20:54 Resp 20 08/29/19 20:54 BP 133/79 08/29/19 20:54 Pulse Ox 95 08/29/19 20:54 - Orders/Labs/Meds Meds: Medications Discontinued Medications Generic Name Dose Route Start Last Admin Trade Name Freq PRN Reason Stop Dose Admin Hydromorphone HCl 0.5 mg 08/29/19 21:24 08/29/19 21:55 Dilaudid IVPUSH 08/29/19 21:25 Not Given ONETIME ONE Cefazolin Sodium/Dextrose 2 gm 50 mls @ 100 mls/hr 08/29/19 21:23 08/29/19 21 :53 / Premix IV 08/29/19 21:52 100 mls/hr ONETIME ONE Administration Lidocaine HCl 20 ml 08/29/19 21:43 08/29/19 22:30 Xylocaine 1% INJECT 08/29/19 21:44 Not Given ONETIME ONE Lidocaine HCl 10 ml 08/29/19 21:53 08/29/19 22:30 Xylocaine 1% INJECT 08/29/19 21:54 10 ml ONETIME ONE Administration Lidocaine HCl 10 ml 08/29/19 21:54 08/29/19 22:30 Xylocaine 1% INJECT 08/29/19 21:55 10 ml ONETIME ONE Administration Lidocaine HCl Confirm 08/29/19 22:11 08/29/19 22:30 Xylocaine 1% Administered 08/29/19 22:12 Not Given Dose 20 ml .ROUTE .STK-MED ONE Lidocaine/Epinephrine Confirm 08/29/19 22:10 08/29/19 22:30 Xylocaine 1% With Epinephrine 1:100,000 Administered 08/29/19 22:11 Not Given Dose 20 ml .ROUTE .STK-MED ONE Lidocaine/Epinephrine 20 ml 08/29/19 22:16 08/29/19 22:30 Xylocaine 1% With Epinephrine 1:100,000 INJECT 08/29/19 22:17 20 ml ONETIME ONE Administration Ondansetron HCl 4 mg 08/29/19 21:24 08/29/19 21:55 Zofran IVPUSH 08/29/19 21:25 Not Given ONETIME ONE Sodium Chloride 10 ml 08/29/19 21:23 Saline Flush FLUSH ASDIRECTED PRN Keep Vein Open - Re-Assessments/Exams Free Text/Narrative Re-Assessment/Exam: 08/29/19 21:29 I did examine the patient for his laceration, and it does appear to be fairly deep, I did have Dr. Raymond, and take a look as well, and he recommends calling the general surgeon on-call as this would likely benefit from OR washout and exploration. It is fairly obvious that the patient's story/ presentation is quite suspicious, nevertheless this will need to be fixed. And I believe it is a little bit too deep to be taking care of in the ER today. I did call Dr. Titus at this time, and he will be in to evaluate the patient. 08/29/19 22:25 Dr. Titus did come in to evaluate the patient, and he believes that he might build to repair this in the ER, he requested lidocaine be ordered for further exploration of the wound. Due to the wound being so deep, I did order 2 g of Ancef, and 0.5 mg Dilaudid due to his pain with 4 mg Zofran. 08/29/19 22:51 Dr. Titus was able to repair the laceration with little to no complication. He states that the patient does not need to be on an outpatient antibiotic, that the 1 dose is appropriate in the ER. He will see the patient at the clinic in around 3 days time, and will reassess at that time. Departure - Departure Time of Disposition: 22:27 Disposition: Home, Self-Care 01 Condition: Fair Clinical Impression: Forearm laceration with complication Qualifiers: Encounter type: initial encounter Laterality: right Qualified Code(s): S51.811A - Laceration without foreign body of right forearm, initial encounter - Discharge Information *PRESCRIPTION DRUG MONITORING PROGRAM REVIEWED*: No *COPY OF PRESCRIPTION DRUG MONITORING REPORT IN PATIENT SAFIA: No Instructions: Sutured Wound Care, [id number] Referrals: PCP,None [Primary Care Provider] - Forms: ED Department Discharge Additional Instructions: You have been evaluated in the ED for your laceration. Repairs were made by our general surgeon quality control assessor tiera, Dr. Titus, he would like to see you at [facility], 8:30 AM Friday. Please call [phone] to confirm appointment, tomorrow Friday. You will be given instructions for the further management of the arm regarding suture removal by Dr. Titus. Please keep this area clean and dry, you may cleanse with regular soap and water. No vigorous scrubbing. Watch out for signs of infection like increased redness, swelling, pain at the laceration site, or if you should develop any fevers or chills. Please return to ED if your symptoms change or worsen. Sepsis Event Note - Focused Exam Date Exam was Performed: 08/31/19 Time Exam was Performed: 10:58
[2019-08-29] MEDS ORDERED: Sodium Chloride 0.9% 10 ML Syringe FLUSH PRN (21:23)
[2019-08-29] MEDS ORDERED: ceFAZolin 2 GM in Premix Bag 1 BAG IV ONE (21:23)
[2019-08-29] MEDS ORDERED: HYDROmorphone 0.5 MG/0.5 ML Syringe IVPUSH ONE (21:24)
[2019-08-29] MEDS ORDERED: Ondansetron 4 MG/2 ML SDV IVPUSH ONE (21:24)
[2019-08-29] MEDS ORDERED: Lidocaine 1% 20 ML MDV INJECT ONE (21:43)
[2019-08-29] MEDS ORDERED: Lidocaine 1% 10 ML MDV INJECT ONE ×2 (21:53→21:54)
[2019-08-29] MEDS ORDERED: Lidocaine 1% with EPINEPHrine 1:100,000 20 ML MDV ONE (22:10)
[2019-08-29] MEDS ORDERED: Lidocaine 1% 10 ML MDV ONE (22:11)
[2019-08-29] MEDS ORDERED: Lidocaine 1% with EPINEPHrine 1:100,000 20 ML MDV INJECT ONE (22:16)
--- NOTE | 2019-08-30 07:03 | CR ---
Right forearm: Two views of the right forearm were obtained. Comparison: No previous forearm study. Soft tissue injury seen anteriorly. No radiopaque foreign object is seen. No underlying bony abnormality is identified. Impression: 1. Soft tissue injury. 2. No opaque foreign body or acute bony abnormality is seen. Diagnostic code #3 This report was dictated in [place] Standard Time
--- NOTE | 2019-08-31 07:56 | OR ---
DATE OF OPERATION: 08/29/2019 SURGEON: Devin Titus MD PREOPERATIVE DIAGNOSIS: Laceration of his proximal right forearm over the brachioradialis. POSTOPERATIVE DIAGNOSIS: Laceration of his proximal right forearm over the brachioradialis. PROCEDURES: Exploration of the wound and repair of the muscle and skin in layered closure under local anesthetic 1% Xylocaine with epinephrine. Findings were a 4-cm laceration that extended transversely from lateral to medial over the brachioradialis in the upper part of the arm. Extended through the skin, subcuticular tissue, and portion of the medial part and superficial part in the brachioradialis muscle was damaged. Did not see any damage to the radial nerve or the median nerve. There was no major blood vessel or tendon injury. 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 He is right handed, but this time, he was using his left hand to cut while his right hand was holding the box and it accidentally cut, sustained the laceration. This occurred about an hour before coming in. There was no major blood loss immediately after the laceration was made. Tetanus was checked and was current, having received last year. Examination was indeterminate as to the ability to move and sensation did not seem to be reproducible or reliable. DESCRIPTION OF PROCEDURE: The patient, after being evaluated in the emergency room, the forearm was then cleansed with Betadine and draped off in a sterile fashion. The skin was then anesthetized with 1% Xylocaine and epinephrine. A small extension of the skin was made medially and using Aviles retractors and light, we were able to get an excellent view of the depth of the wound and the above noted was found. The muscle was closely reapproximated with interrupted 3-0 Vicryl suture and the subcuticular tissue closed with interrupted 3-0 Vicryl suture and the skin with interrupted 4-0 nylon suture. Dressing was placed along with an arm splint. The patient tolerated the procedure and will be followed up this Friday in the clinic and we will recommend he have Tylenol for pain. While he was in the emergency room, he received 1 g of Ancef. He tolerated the procedure. ANESTHESIA: ESTIMATED BLOOD LOSS: MMODAL /[id number]
== END 2019-08-29 23:14 | disposition home or self-care (01) ==
LOC: JD.ED 20:36
DX: S51.811A Laceration without foreign body of right forearm, initial encounter (principal); F17.210 Nicotine dependence, cigarettes, uncomplicated; W26.8XXA Contact with other sharp object(s), not elsewhere classified, initial encounter
CPT/HCPCS: 13121; 73090; 96365; 99283; J0690; J2001; 99284

== ENCOUNTER 2019-11-27 21:14 | Emergency (ER) | payer SELFPAY ==
[2019-11-27 21:25] VITALS: BP 140/85; PULSE 95
[2019-11-27] MEDS ORDERED: cefTRIAXone 1 GM, Lidocaine 1% 2.1 ML IM SCH ×2 (21:45)
--- NOTE | 2019-11-27 21:56 | EDM.PDOC ---
ED HPI GENERAL MEDICAL PROBLEM - General Chief Complaint: Upper Extremity Injury/Pain Stated Complaint: LEFT HAND SWELLING Time Seen by Provider: 11/27/19 21:32 Source of Information: Reports: Patient History Limitations: Reports: No Limitations - History of Present Illness INITIAL COMMENTS - FREE TEXT/NARRATIVE: The patient presents with left hand pain and swelling. He says he was fishing yesterday and he had a bite and went to real the fish in and he slipped and fell and landed on his left hand and his left hand went between to rocks. He was wearing flip flops and he feels that contributed to the fall. He is right handed. His tetanus is up to date. He has a laceration to both sides of the left hand over the web space between the thumb and index finger. He has some drainage from it. Onset: Sudden Duration: Day(s): (Yesterday) Location: Reports: Upper Extremity, Left Quality: Reports: Sharp Severity: Moderate Improves with: Reports: None Worsens with: Reports: None Associated Symptoms: Reports: No Other Symptoms Left Hand Pain Score (Numeric/FACES): 10 - Related Data Allergies Allergy/AdvReac Type Severity Reaction Status Date / Time No Known Allergies Allergy Verified 11/27/19 21:25 Home Meds: Home Meds Sulfamethoxazole/Trimethoprim [Bactrim Ds Tablet] 2 each PO BID #40 tablet 11/26 [Rx] Past Medical History - Past Health History Medical/Surgical History: Denies Medical/Surgical History Respiratory History: Reports: Pneumonia, Recurrent Social & Family History - Tobacco Use Smoking Status *Q: Never Smoker Second Hand Smoke Exposure: No - Caffeine Use Caffeine Use: Reports: None - Recreational Drug Use Recreational Drug Use: No - Living Situation & Occupation Living situation: Reports: Single 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) Review of Systems - Review of Systems Review Of Systems: See Below Constitutional: Reports: No Symptoms Eyes: Reports: No Symptoms Ears: Reports: No Symptoms Nose: Reports: No Symptoms Mouth/Throat: Reports: No Symptoms Respiratory: Reports: No Symptoms Cardiovascular: Reports: No Symptoms GI/Abdominal: Reports: No Symptoms Genitourinary: Reports: No Symptoms Musculoskeletal: Reports: Other (Left hand swelling and pain) ED EXAM, GENERAL - Physical Exam Exam: See Below Exam Limited By: No Limitations General Appearance: Alert, No Apparent Distress Ears: Normal External Exam Nose: Normal Inspection Head: Atraumatic, Normocephalic Neck: Normal Inspection Respiratory/Chest: No Respiratory Distress Extremities: Other (Erythema and edema to the left hand over the web space between the thumb and index finger. There is some purelent drainage coming from it. There is a small laceration on both sides of the hand in this area.) Course - Vital Signs Last Recorded V/S: Last Vital Signs Temp 97.5 F 11/27/19 21:21 Pulse 95 11/27/19 21:21 Resp BP 140/85 11/27/19 21:21 Pulse Ox 100 11/27/19 21:21 - Orders/Labs/Meds Orders: Active Orders 24 hr Category Date Time Status Hand Comp Min 3V Lt [CR] Stat Exams 11/27/19 21:42 Ordered CULTURE ANAEROBIC + SMEAR [RM] Stat Lab 11/27/19 21:41 Ordered cefTRIAXone [Rocephin] 1 gm Med 11/27/19 21:45 Active Lidocaine 1% [Xylocaine 1%] 2.1 ml IM Q24H Medication Orders Ceftriaxone Sodium 1 gm/ (Lidocaine HCl 2.1 ml) 0 gm IM Q24H ESME Meds: Medications Generic Name Dose Route Start Last Admin Trade Name Freq PRN Reason Stop Dose Admin Ceftriaxone Sodium 1 gm/ 0 gm 11/27/19 21:45 Lidocaine HCl 2.1 ml IM Q24H ESME - Re-Assessments/Exams Free Text/Narrative Re-Assessment/Exam: 11/27/19 21:56 I ordered cultures, hand x-ray and rocephin 1 gram IM. His x-ray looks good. I will get him on some bactrim DS BID. I will have him follow up with Dr Juan within a week and return if he is not worse. Departure - Departure Time of Disposition: 22:00 Disposition: Home, Self-Care 01 Condition: Good Clinical Impression: Cellulitis of left hand Puncture wound of left hand Qualifiers: Encounter type: initial encounter Foreign body presence: without foreign body Qualified Code(s): S61.432A - Puncture wound without foreign body of left hand, initial encounter - Discharge Information *PRESCRIPTION DRUG MONITORING PROGRAM REVIEWED*: No *COPY OF PRESCRIPTION DRUG MONITORING REPORT IN PATIENT SAFIA: No Prescriptions: Sulfamethoxazole/Trimethoprim [Bactrim Ds Tablet] 2 each PO BID #40 tablet Referrals: PCP,None [Primary Care Provider] - Arthur Juan MD [Physician] - 1 Week Additional Instructions: Soak your hand in warm soapy water 2 times per day and apply antibiotic ointment after. Put warm compresses on your hand 3 times per day for 5 days. Take the bactrim 2 pills 2 times per day for 10 days. Take motrin or tylenol as needed for pain. Follow up with Dr Juan next week. Please return if you are worse. Sepsis Event Note - Evaluation Sepsis Screening Result: No Definite Risk - Focused Exam Vital Signs: Vital Signs Temp Pulse BP Pulse Ox 11/27/19 21:21 97.5 F 95 140/85 100 Date Exam was Performed: 11/27/19 Time Exam was Performed: 21:50 - My Orders Last 24 Hours: My Active Orders 11/27/19 21:41 CULTURE ANAEROBIC + SMEAR [RM] Stat 11/27/19 21:42 Hand Comp Min 3V Lt [CR] Stat 11/27/19 21:45 cefTRIAXone [Rocephin] 1 gm Lidocaine 1% [Xylocaine 1%] 2.1 ml IM Q24H - Assessment/Plan Last 24 Hours: My Active Orders 11/27/19 21:41 CULTURE ANAEROBIC + SMEAR [RM] Stat 11/27/19 21:42 Hand Comp Min 3V Lt [CR] Stat 11/27/19 21:45 cefTRIAXone [Rocephin] 1 gm Lidocaine 1% [Xylocaine 1%] 2.1 ml IM Q24H
--- NOTE | 2019-11-29 06:42 | CR ---
Left hand: 4 views of the left hand were obtained. Comparison: No prior hand exam. Joint spaces are preserved. Soft tissue air is noted within the proximal hand. No acute fracture, dislocation or other bony abnormality is seen. Impression: 1. Soft tissue air within the hand. 2. No acute bony abnormality is appreciated. Diagnostic code #3 This report was dictated in MDT
== END 2019-11-27 22:10 | disposition home or self-care (01) ==
LOC: JD.ED 21:14
DX: S61.432A Puncture wound without foreign body of left hand, initial encounter (principal); L03.114 Cellulitis of left upper limb; W01.0XXA Fall on same level from slipping, tripping and stumbling without subsequent striking against object, initial encounter
CPT/HCPCS: 73130; 87075; 87205; 96372; 99283; J0696; J2001

== ENCOUNTER 2020-04-14 18:45 | Emergency (ER) | payer SELFPAY ==
[2020-04-14 18:58] VITALS: BP 121/72; PULSE 111
--- NOTE | 2020-04-14 19:17 | EDM.PDOC ---
ED HPI GENERAL MEDICAL PROBLEM - General Chief Complaint: ENT Problem Stated Complaint: TOOTHACHE Time Seen by Provider: 04/14/20 18:50 Source of Information: Reports: Patient, RN Notes Reviewed History Limitations: Reports: No Limitations - History of Present Illness INITIAL COMMENTS - FREE TEXT/NARRATIVE: Patient is a 34-year-old male who presents to the ED for evaluation of his dental complaint. The patient states he has been having left lower dental pain for roughly 5 years, but states he has noted some swelling and more intense pain over the last 4 days. He does have a fever at time of triage at 99.6 F, otherwise vital signs are stable. He did take 4 aspirin prior to coming to the ER, but states this did not even touch the pain he notes is very sensitive to cold air as well. He is not had any nausea/vomiting/diarrhea, or any sore throat, or any shortness of breath or cough. He states he is tried to call dentists but they state that they are months out or cannot get him booked for some time. There is facial swelling on his left lower jaw, and this area is tender to the touch. There is no lymphadenopathy. Left Lower Tooth/Teeth Pain Score (Numeric/FACES): 10 - Related Data Allergies Allergy/AdvReac Type Severity Reaction Status Date / Time No Known Allergies Allergy Verified 11/27/19 21:25 Home Meds: Home Meds Acetaminophen/HYDROcodone [Hobson 325-5 MG] 1 tab PO Q6H PRN #12 tablet 04/14/20 [Rx] Amoxicillin/Clavulanate K [Augmentin 875-125 MG] 1 tab PO BID #14 tablet 04/14/20 [Rx] Naproxen [Naprosyn] 500 mg PO Q12HR #14 tab 04/14/20 [Rx] Past Medical History - Past Health History Medical/Surgical History: Denies Medical/Surgical History Respiratory History: Reports: Pneumonia, Recurrent Gastrointestinal History: Reports: Other (See Below) Other Gastrointestinal History: 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 ED EXAM, ENT - Physical Exam Exam: See Below Exam Limited By: No Limitations General Appearance: Alert, WD/WN, No Apparent Distress Mouth/Throat: Normal Lips, Normal Oropharynx, Dental Abcess (There does appear to be a dental abscess on the left outer gum, near the second molar there are fillings in place to all molars on the left lower jaw), Other (Dentition in very poor repair) Head: Normocephalic, Other (Left lower jaw swelling) Neck: Normal Inspection, Supple, Non-Tender, Full Range of Motion Respiratory/Chest: No Respiratory Distress, Lungs Clear, Normal Breath Sounds, No Accessory Muscle Use, Chest Non-Tender Cardiovascular: Normal Peripheral Pulses, Regular Rate, Rhythm, No Murmur Extremities: Normal Inspection, Normal Capillary Refill Neurological: Alert, Oriented, Normal Cognition, No Motor/Sensory Deficits Psychiatric: Normal Affect, Normal Mood Skin: Warm, Dry, Intact, Normal Color, No Rash Course - Vital Signs Last Recorded V/S: Last Vital Signs Temp 99.6 F 04/14/20 18:55 Pulse 111 H 04/14/20 18:55 Resp 20 04/14/20 18:55 BP 121/72 04/14/20 18:55 Pulse Ox 99 04/14/20 18:55 - Re-Assessments/Exams Free Text/Narrative Re-Assessment/Exam: 04/14/20 19:16 Patient presents to the ED for his dental complaint. He will be given a prescription for Augmentin, a short supply of Hobson tablets and Naprosyn for management. Departure - Departure Time of Disposition: 19:16 Disposition: Home, Self-Care 01 Condition: Good Clinical Impression: Dental abscess - Discharge Information *PRESCRIPTION DRUG MONITORING PROGRAM REVIEWED*: Yes *COPY OF PRESCRIPTION DRUG MONITORING REPORT IN PATIENT SAFIA: No Prescriptions: Amoxicillin/Clavulanate K [Augmentin 875-125 MG] 1 tab PO BID #14 tablet Naproxen [Naprosyn] 500 mg PO Q12HR #14 tab Acetaminophen/HYDROcodone [Hobson 325-5 MG] 1 tab PO Q6H PRN #12 tablet PRN Reason: Pain Instructions: Dental Abscess, [id number] Referrals: PCP,None [Primary Care Provider] - Additional Instructions: You have been evaluated in the ED for your dental pain. You have been provided with a script for Augmentin. This was electronically sent to the [facility] located in the [facility] ( ). Please take this medication as directed. (1 tab twice daily for 7 days or until gone). This antibiotic can cause diarrhea, recommend that you start a probiotic while taking this medication. Aleve provides good pain relief for dental pain. Please take 1-2 tabs twice daily as needed for pain. You were given a prescription for Naprosyn, Please take 1 tab every 12 hours for pain relief. You were given a prescription for a strong pain medication, hydrocodone/acetaminophen 5/325 mg, please take 1 tab every 6 hours as needed for pain not relieved by Tylenol or ibuprofen alone. Please note this medication does contain Tylenol in it, so do not take more than 4000 mg in a 24- hour time span. These medications can be addictive, so please take as few as possible to achieve adequate pain control. These meds can also be quite constipating, recommend that you increase your oral fluid intake and take a stool softener like MiraLAX while taking these medications. Do not drive while taking this medication. You may use hot pack/ ice packs to the affected area as tolerated in 15-20 minute intervals. You will ultimately need to find a dentist to provide definitive management of your dental pain. The [facility] in [place], [place], , is a clinic that has been known to take people that do not have dental insurance, and may provide payment plans. You might want to check with this provider, regarding your dental pain. Please return to the ED if your symptoms change or worsen. Sepsis Event Note (ED) - Evaluation Sepsis Screening Result: No Definite Risk - Focused Exam Vital Signs: Vital Signs Temp Pulse Resp BP Pulse Ox 04/14/20 18:55 99.6 F 111 H 20 121/72 99
== END 2020-04-14 19:30 | disposition home or self-care (01) ==
LOC: JD.ED 18:45
DX: K04.7 Periapical abscess without sinus (principal); F17.210 Nicotine dependence, cigarettes, uncomplicated
CPT/HCPCS: 99282; 99283

== ENCOUNTER 2021-02-10 12:56 | Inpatient (IN) | payer SELFPAY ==
[2021-02-10] MEDS ORDERED: Sodium Chloride 0.9% 10 ML Syringe FLUSH PRN (13:04)
[2021-02-10] MEDS ORDERED: Sodium Chloride 0.9% 1,000 ML IV STA (13:04)
[2021-02-10] MEDS ORDERED: HYDROmorphone 0.5 MG/0.5 ML Syringe IVPUSH ONE (13:04)
[2021-02-10] MEDS ORDERED: Famotidine 20 MG/2 ML SDV IVPUSH ONE (13:09)
--- NOTE | 2021-02-10 13:09 | EDM.PDOC ---
ED HPI GENERAL MEDICAL PROBLEM - General Chief Complaint: Abdominal Pain Stated Complaint: [facility] Time Seen by Provider: 02/10/21 12:57 Source of Information: Reports: Patient, RN Notes Reviewed History Limitations: Reports: No Limitations - History of Present Illness INITIAL COMMENTS - FREE TEXT/NARRATIVE: Patient is a 35-year-old male presenting to the emergency department via [facility] with complaints of acute onset of abdominal pain and vomiting. He reports that he went to his aunts house and ate "brownies, chicken noodle soup, and tomato soup "and that he left there to try to find somewhere to live as he is homeless. While riding his bike, he began to experience abdominal pain and vomiting. He cannot localize the abdominal pain to any one particular area of his abdomen. States it "hurts all over ". Police initially arrived on scene and report the patient was quite aggressive with them. He denies any alcohol or drug use. States he used to be an alcoholic but is not drank for 1 year. Denies any history of abdominal pain. He has had no previous abdominal surgeries to report. He received Zofran in route from EMS and was not actively vomiting on arrival to ER. Left Abdomen Pain Score (Numeric/FACES): 10 - Related Data Allergies Allergy/AdvReac Type Severity Reaction Status Date / Time No Known Allergies Allergy Verified 02/10/21 18:45 Home Meds: Home Meds . 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 ED EXAM, GI/ABD - Physical Exam Exam: See Below Exam Limited By: No Limitations General Appearance: Alert, Mild Distress Respiratory/Chest: No Respiratory Distress, Lungs Clear, Normal Breath Sounds, No Accessory Muscle Use, Chest Non-Tender Cardiovascular: Normal Peripheral Pulses, Regular Rate, Rhythm, No Edema, No Gallop, No JVD, No Murmur, No Rub GI/Abdominal Exam: Soft, No Organomegaly, No Distention, No Abnormal Bruit, No Mass, Pelvis Stable, Tender (generalized tenderness throughout ), Abnormal Bowel Sounds (hypoactive x 4) Neurological: Alert, Oriented, CN II-XII Intact, Normal Cognition, Normal Gait, Normal Reflexes, No Motor/Sensory Deficits Psychiatric: Normal Affect, Normal Mood Skin Exam: Warm, Dry, Intact, Normal Color, No Rash Course - Vital Signs Last Recorded V/S: Last Vital Signs Temp 97.5 F 02/11/21 15:40 Pulse 65 02/11/21 15:40 Resp 16 02/11/21 15:40 BP 123/65 02/11/21 15:40 Pulse Ox 94 L 02/11/21 15:40 - Orders/Labs/Meds Labs: Laboratory Tests 02/10/21 02/10/21 02/10/21 Range/Units 13:21 13:21 15:50 WBC 5.84 (4.23-9.07) K/mm3 RBC 4.84 (4.63-6.08) M/mm3 Hgb 15.1 (13.7-17.5) gm/dl Hct 45.3 (40.1-51.0) % MCV 93.6 H D (79.0-92.2) fl MCH 31.2 (25.7-32.2) pg MCHC 33.3 (32.2-35.5) g/dl RDW Std Deviation 43.8 (35.1-43.9) fL Plt Count 259 (163-337) K/mm3 MPV 10.2 (9.4-12.3) fl Neut % (Auto) 60.3 (34.0-67.9) % Lymph % (Auto) 28.1 (21.8-53.1) % Smyth % (Auto) 9.8 (5.3-12.2) % Eos % (Auto) 1.5 (0.8-7.0) Baso % (Auto) 0.3 (0.1-1.2) % Neut # (Auto) 3.52 (1.78-5.38) K/mm3 Lymph # (Auto) 1.64 (1.32-3.57) K/mm3 Smyth # (Auto) 0.57 (0.30-0.82) K/mm3 Eos # (Auto) 0.09 (0.04-0.54) K/mm3 Baso # (Auto) 0.02 (0.01-0.08) K/mm3 Sodium 143 (136-145) mEq/L Potassium 4.8 (3.5-5.1) mEq/L Chloride 108 H (98-107) mEq/L Carbon Dioxide 31 (21-32) mEq/L Anion Gap 8.8 (5-15) BUN 12 (7-18) mg/dL Creatinine 1.0 (0.7-1.3) mg/dL Est Cr Clr Drug Dosing TNP Estimated GFR (MDRD) > 60 (>60) mL/min BUN/Creatinine Ratio 12.0 L (14-18) Glucose 93 (70-99) mg/dL Calcium 8.4 L (8.5-10.1) mg/dL Total Bilirubin 0.6 (0.2-1.0) mg/dL AST 45 H (15-37) U/L ALT 76 H (16-63) U/L Alkaline Phosphatase 103 (46-116) U/L C-Reactive Protein <0.2 (<1.0) mg/dL Total Protein 7.7 (6.4-8.2) g/dl Albumin 3.7 (3.4-5.0) g/dl Globulin 4.0 gm/dL Albumin/Globulin Ratio 0.9 L (1-2) Lipase 120 (73-393) U/L Ethyl Alcohol 0.00 (0.00) gm% SARS-CoV-2 RNA (KETAN) Negative (NEGATIVE) Meds: Medications Discontinued Medications Generic Name Dose Route Start Last Admin Trade Name Freq PRN Reason Stop Dose Admin Acetaminophen 650 mg 02/11/21 11:51 02/11/21 12:06 Acetaminophen 325 Mg Tab PO 650 mg Q4H PRN Administration Pain Enoxaparin Sodium 40 mg 02/11/21 09:00 02/11/21 09:29 Enoxaparin 40 Mg/0.4 Ml Syringe SUBCUT Not Given DAILY ESME Famotidine 20 mg 02/10/21 13:09 02/10/21 13:15 Famotidine 20 Mg/2 Ml Sdv IVPUSH 02/10/21 13:10 20 mg ONETIME ONE Administration Hydromorphone HCl 0.5 mg 02/10/21 13:04 02/10/21 13:15 Hydromorphone 0.5 Mg/0.5 Ml Syringe IVPUSH 02/10/21 13:05 0.5 mg ONETIME ONE Administration Hydromorphone HCl 0.5 mg 02/10/21 15:58 Hydromorphone 0.5 Mg/0.5 Ml Syringe IVPUSH Q4H PRN Pain (severe 7-10) Sodium Chloride 1,000 mls @ 150 mls/hr 02/10/21 13:04 02/10/21 13:14 Normal Saline IV 02/10/21 19:43 150 mls/hr NOW STA Administration Lactated Ringer's 1,000 mls @ 125 mls/hr 02/10/21 16:00 02/11/21 10:15 Ringers, Lactated IV 50 mls/hr ASDIRECTED ESME Infusion Lactated Ringer's 1,000 mls @ 50 mls/hr 02/11/21 10:00 02/11/21 12:10 Ringers, Lactated IV 50 mls/hr ASDIRECTED ESME Administration Ondansetron HCl 4 mg 02/10/21 15:58 Ondansetron 4 Mg/2 Ml Sdv IV Q4H PRN Nausea/Vomiting Pantoprazole Sodium 40 mg 02/10/21 21:00 02/11/21 09:29 Pantoprazole 40 Mg Vial IV 40 mg Q12HR ESME Administration Sodium Chloride 10 ml 02/10/21 13:04 02/10/21 12:59 Sodium Chloride 0.9% 10 Ml Syringe FLUSH 10 ml ASDIRECTED PRN Administration Keep Vein Open - Re-Assessments/Exams Free Text/Narrative Re-Assessment/Exam: Patient is a 35-year-old male presenting to the emergency department with complaints of generalized abdominal pain with vomiting. He reports this happened abruptly while riding his bike. He ate brownies, chicken soup, and tomato soup prior to onset of pain. Reports he had off-and-on abdominal pain in the past but nothing to this extent. He cannot localize pain. On exam, complains of tenderness throughout the abdomen with no particular area being worse than any others. Abdomen is soft. He received Zofran via EMS and is not actively vomiting. EMS reports that he was quite aggressive with law enforcement, however he was cooperative with them. He reports history of alcoholism but states he has not drank in the last year. Review his medical records show that he does also have a history of methamphetamine abuse however he denies illicit drug use. He I have ordered blood work, urinalysis, urine drug screen, CT scan of the abdomen pelvis. Ordered IV fluids, Dilaudid, and Pepcid. 02/10/21 16:01 CT scan of the abdomen pelvis shows small bowel obstruction with transition point posterior mid pelvis. There is also thickening of more proximal dilated small bowel loops consistent with a nonspecific enteritis. Is not clear if this is related to the bowel obstruction or this is a separate process. Case was discussed with general surgeon on-call, Dr. Linares , he will admit the patient into observation. Patient's pain and nausea are well controlled at this time. Departure - Departure Time of Disposition: 16:02 Disposition: Refer to Observation Condition: Good Clinical Impression: Small bowel obstruction, Enteritis - Discharge Information
[2021-02-10] MEDS ORDERED: HYDROmorphone 0.5 MG/0.5 ML Syringe IVPUSH PRN (15:58)
[2021-02-10] MEDS ORDERED: Ondansetron 4 MG/2 ML SDV IV PRN (15:58)
--- NOTE | 2021-02-10 15:58 | PCM.HP.2 ---
H&P History of Present Illness - General Date of Service: 02/10/21 Source of Information: Patient History Limitations: Reports: No Limitations - History of Present Illness Initial Comments - Free Text/Narative: Patient ate some breakfast this AM and went for a bike ride. He developed acute onset of abdominal pain, nausea, vomiting, lightheadedness and sweating. He was brought to the ER. CT showed thickening of small bowel and concern for SBO. he denies any prior intraabdominal operations. He is doing better on my exam. Onset of Symptoms: Reports: Sudden Duration of Symptoms: Reports: Hour(s): (8) Location: Reports: Abdomen Quality: Reports: Ache Severity: Severe Improves with: Reports: None Worsens with: Reports: None Associated Symptoms: Reports: Nausea/Vomiting Left Abdomen Pain Score (Numeric/FACES): 10 - Related Data Allergies/Adverse Reactions: Allergies Allergy/AdvReac Type Severity Reaction Status Date / Time No Known Allergies Allergy Verified 02/10/21 13:01 Home Medications: Home Meds . [No Known Home Meds] 02/10/21 [History] Past Medical History - Past Health History Medical/Surgical History: Denies Medical/Surgical History Respiratory History: Reports: Pneumonia, Recurrent Gastrointestinal History: Reports: Other (See Below) Other Gastrointestinal History: liver issues due to drinking - Infectious Disease History Infectious Disease History: Reports: Chicken Pox Social & Family History - Tobacco Use Tobacco Use Status *Q: Current Every Day Tobacco User Years of Tobacco use: 20 Packs/Tins Daily: 0.5 - Caffeine Use Caffeine Use: Reports: Coffee, Energy Drinks, Soda - Recreational Drug Use Recreational Drug Use: No - Living Situation & Occupation Living situation: Reports: Single 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) H&P Review of Systems - Review of Systems: Review Of Systems: See Below General: Reports: No Symptoms HEENT: Reports: No Symptoms Pulmonary: Reports: No Symptoms Cardiovascular: Reports: No Symptoms Gastrointestinal: Reports: No Symptoms Genitourinary: Reports: No Symptoms Musculoskeletal: Reports: No Symptoms Skin: Reports: No Symptoms Psychiatric: Reports: No Symptoms Exam - Exam Exam: See Below - Vital Signs Vital Signs: Last Vital Signs Temp 97.2 F 02/10/21 12:58 Pulse 69 02/10/21 12:58 Resp 16 02/10/21 12:58 BP 124/92 H 02/10/21 12:58 Pulse Ox 98 02/10/21 12:58 - Exam General: Alert, Oriented, Cooperative Lungs: Clear to Auscultation, Normal Respiratory Effort Cardiovascular: Regular Rate, Regular Rhythm, Normal S1, Normal S2 GI/Abdominal Exam: Soft, No Distention, No Mass, Tender (mildly) - Patient Data Lab Results Last 24 hrs: Laboratory Results - last 24 hr 02/10/21 02/10/21 Range/Units 13:21 13:21 WBC 5.84 (4.23-9.07) K/mm3 RBC 4.84 (4.63-6.08) M/mm3 Hgb 15.1 (13.7-17.5) gm/dl Hct 45.3 (40.1-51.0) % MCV 93.6 H D (79.0-92.2) fl MCH 31.2 (25.7-32.2) pg MCHC 33.3 (32.2-35.5) g/dl RDW Std Deviation 43.8 (35.1-43.9) fL Plt Count 259 (163-337) K/mm3 MPV 10.2 (9.4-12.3) fl Neut % (Auto) 60.3 (34.0-67.9) % Lymph % (Auto) 28.1 (21.8-53.1) % [place] % (Auto) 9.8 (5.3-12.2) % Eos % (Auto) 1.5 (0.8-7.0) Baso % (Auto) 0.3 (0.1-1.2) % Neut # (Auto) 3.52 (1.78-5.38) K/mm3 Lymph # (Auto) 1.64 (1.32-3.57) K/mm3 [place] # (Auto) 0.57 (0.30-0.82) K/mm3 Eos # (Auto) 0.09 (0.04-0.54) K/mm3 Baso # (Auto) 0.02 (0.01-0.08) K/mm3 Sodium 143 (136-145) mEq/L Potassium 4.8 (3.5-5.1) mEq/L Chloride 108 H (98-107) mEq/L Carbon Dioxide 31 (21-32) mEq/L Anion Gap 8.8 (5-15) BUN 12 (7-18) mg/dL Creatinine 1.0 (0.7-1.3) mg/dL Est Cr Clr Drug Dosing TNP Estimated GFR (MDRD) > 60 (>60) mL/min BUN/Creatinine Ratio 12.0 L (14-18) Glucose 93 (70-99) mg/dL Calcium 8.4 L (8.5-10.1) mg/dL Total Bilirubin 0.6 (0.2-1.0) mg/dL AST 45 H (15-37) U/L ALT 76 H (16-63) U/L Alkaline Phosphatase 103 (46-116) U/L C-Reactive Protein <0.2 (<1.0) mg/dL Total Protein 7.7 (6.4-8.2) g/dl Albumin 3.7 (3.4-5.0) g/dl Globulin 4.0 gm/dL Albumin/Globulin Ratio 0.9 L (1-2) Lipase 120 (73-393) U/L Ethyl Alcohol 0.00 (0.00) gm% Result Diagrams: 02/10/21 13:21 02/10/21 13:21 Sepsis Event Note - Focused Exam Vital Signs: Vital Signs Temp Pulse Resp BP Pulse Ox 02/10/21 12:58 97.2 F 69 16 124/92 H 98 Problem List Initiated/Reviewed/Updated: No Orders Last 24hrs: Active Orders 24 hr Category Date Time Status Peripheral IV Care [RC] . DIRECTED Care 02/10/21 13:04 Active Abdomen Pelvis w Cont [CT] Stat Exams 02/10/21 13:04 Taken CORONAVIRUS COVID-19 KETAN [MOLEC] Routine Lab 02/10/21 15:35 Ordered DRUG SCREEN, URINE [URCHEM] Stat Lab 02/10/21 13:05 Ordered UA W/MICROSCOPIC [URIN] Stat Lab 02/10/21 13:04 Ordered Sodium Chloride 0.9% [Normal Saline] 1,000 ml Med 02/10/21 13:04 Active IV NOW Sodium Chloride 0.9% [Saline Flush] Med 02/10/21 13:04 Active 10 ml FLUSH ASDIRECTED PRN Peripheral IV Insertion Adult [OM.PC] Stat Oth 02/10/21 13:04 Ordered Medication Orders Sodium Chloride (Normal Saline) 1,000 mls @ 150 mls/hr IV NOW STA Stop: 02/10/21 19:43 Last Admin: 02/10/21 13:14 Dose: 150 mls/hr Documented by: ABISAI Sodium Chloride (Sodium Chloride 0.9% 10 Ml Syringe) 10 ml FLUSH ASDIRECTED PRN PRN Reason: Keep Vein Open Last Admin: 02/10/21 12:59 Dose: 10 ml Documented by: YENI Assessment/Plan Comment:: Patient has concern for SBO likely due to gastroenteritis. Plan - Admit for observation - NPO, IVF, No need for NGT at this time - Expectant management - BMP in the AM - Mortality Measure Prognosis:: Good
[2021-02-10] MEDS: Lactated Ringers 1,000 ML IV SCH (18:43)
[2021-02-10] MEDS: Pantoprazole 40 MG Vial IV SCH (22:00)
[2021-02-11] MEDS: Lactated Ringers 1,000 ML IV SCH (02:56)
--- NOTE | 2021-02-11 07:33 | CT ---
CT abdomen and pelvis Technique: Multiple axial sections were obtained from above the dome of the diaphragm inferiorly through the pubic symphysis. Intravenous contrast and oral contrast was utilized. Delayed images were obtained through the bladder. Reconstructed coronal and sagittal images were obtained. Comparison: Prior noncontrast CT study of 07/28/09. Findings: Visualized lung bases show nothing acute. Liver contains no focal abnormality. Spleen size is normal. Adrenal glands show no nodule. Kidneys show symmetric contrast enhancement without hydronephrosis or mass. Pancreas appears within normal limits. Gallbladder is not well visualized. Abdominal aorta shows no aneurysm. No retroperitoneal adenopathy is seen. No pelvic mass or adenopathy is noted. Dilated small bowel loops are noted with bowel wall thickening. Etiology for this is not appreciated on this exam and findings presumably are due to an adhesion. Findings show transition point within the mid pelvis. Appendix is not visualized with certainty. Delayed images show contrast within the distal ureters and within the bladder. Bone window settings were reviewed. No acute osseous abnormality is appreciated. Impression: 1. Dilated small bowel loops with wall thickening. Findings are compatible with small bowel obstruction. No etiology is seen and this is most likely due to adhesions. Transition point occurs within the mid pelvis. 2. No additional abnormality is identified on CT study of the abdomen and pelvis. Diagnostic code #3 I agree with preliminary report from [facility], finalized on 02/10/21, 4:05 PM CDT, code 1
--- NOTE | 2021-02-11 07:33 | CR ---
Abdomen: Supine view view of the abdomen was obtained. Comparison: Prior CT abdomen and pelvis exam of 02/10/21 as well as abdominal x-ray of 07/25/09. Contrast is noted within the colon which is from prior CT study. On this exam there is no small bowel dilatation being seen that was noted on prior CT exam. No soft tissue abnormality is seen. Bony structures are unremarkable. Impression: 1. Contrast within the colon from prior CT study. 2. No small bowel dilatation or other acute abnormality is otherwise seen. Diagnostic code #2
[2021-02-11] MEDS ORDERED: Enoxaparin 40 MG/0.4 ML Syringe SUBCUT SCH (09:00)
[2021-02-11] MEDS: Pantoprazole 40 MG Vial IV SCH (09:29)
[2021-02-11] MEDS ORDERED: Lactated Ringers 1,000 ML IV SCH (10:00)
--- NOTE | 2021-02-11 10:29 | PCM.PN ---
- General Info Date of Service: 02/11/21 Admission Dx/Problem (Free Text): SBO Subjective Update: No nausea or vomiting. He still has some abdominal pain but it is better that it was yesterday Functional Status: Reports: Pain Controlled - Review of Systems General: Reports: No Symptoms HEENT: Reports: No Symptoms Pulmonary: Reports: No Symptoms Cardiovascular: Reports: No Symptoms Gastrointestinal: Reports: Abdominal Pain Genitourinary: Reports: No Symptoms Musculoskeletal: Reports: No Symptoms Skin: Reports: No Symptoms - Patient Data Vitals - Most Recent: Last Vital Signs Temp 97.9 F 02/11/21 07:51 Pulse 67 02/11/21 07:51 Resp 18 02/11/21 07:51 BP 115/67 02/11/21 07:51 Pulse Ox 98 02/11/21 07:51 Weight - Most Recent: 73.21 kg I&O - Last 24 Hours: Intake & Output 02/10/21 02/11/21 02/11/21 22:59 06:59 14:59 Intake Total 1398 Output Total 1225 Balance 173 Lab Results Last 24 Hours: Laboratory Results - last 24 hr 02/10/21 02/10/21 02/10/21 Range/Units 13:21 13:21 15:50 WBC 5.84 (4.23-9.07) K/mm3 RBC 4.84 (4.63-6.08) M/mm3 Hgb 15.1 (13.7-17.5) gm/dl Hct 45.3 (40.1-51.0) % MCV 93.6 H D (79.0-92.2) fl MCH 31.2 (25.7-32.2) pg MCHC 33.3 (32.2-35.5) g/dl RDW Std Deviation 43.8 (35.1-43.9) fL Plt Count 259 (163-337) K/mm3 MPV 10.2 (9.4-12.3) fl Neut % (Auto) 60.3 (34.0-67.9) % Lymph % (Auto) 28.1 (21.8-53.1) % [place] % (Auto) 9.8 (5.3-12.2) % Eos % (Auto) 1.5 (0.8-7.0) Baso % (Auto) 0.3 (0.1-1.2) % Neut # (Auto) 3.52 (1.78-5.38) K/mm3 Lymph # (Auto) 1.64 (1.32-3.57) K/mm3 [place] # (Auto) 0.57 (0.30-0.82) K/mm3 Eos # (Auto) 0.09 (0.04-0.54) K/mm3 Baso # (Auto) 0.02 (0.01-0.08) K/mm3 Sodium 143 (136-145) mEq/L Potassium 4.8 (3.5-5.1) mEq/L Chloride 108 H (98-107) mEq/L Carbon Dioxide 31 (21-32) mEq/L Anion Gap 8.8 (5-15) BUN 12 (7-18) mg/dL Creatinine 1.0 (0.7-1.3) mg/dL Est Cr Clr Drug Dosing TNP Estimated GFR (MDRD) > 60 (>60) mL/min BUN/Creatinine Ratio 12.0 L (14-18) Glucose 93 (70-99) mg/dL Calcium 8.4 L (8.5-10.1) mg/dL Phosphorus (2.6-4.7) mg/dL Magnesium (1.8-2.4) mg/dL Total Bilirubin 0.6 (0.2-1.0) mg/dL AST 45 H (15-37) U/L ALT 76 H (16-63) U/L Alkaline Phosphatase 103 (46-116) U/L C-Reactive Protein <0.2 (<1.0) mg/dL Total Protein 7.7 (6.4-8.2) g/dl Albumin 3.7 (3.4-5.0) g/dl Globulin 4.0 gm/dL Albumin/Globulin Ratio 0.9 L (1-2) Lipase 120 (73-393) U/L Urine Color (Yellow) Urine Appearance (Clear) Urine pH (5.0-8.0) Ur Specific [place] (1.005-1.030) Urine Protein (Negative) Urine Glucose (UA) (Negative) Urine Ketones (Negative) Urine Occult Blood (Negative) Urine Nitrite (Negative) Urine Bilirubin (Negative) Urine Urobilinogen (0.2-1.0) Ur Leukocyte Esterase (Negative) Urine RBC (0-5) /hpf Urine WBC (0-5) /hpf Ur Squamous Epith Cells (0-5) /hpf Urine Bacteria (FEW) /hpf Urine Mucus (FEW) /hpf Urine Opiates Screen (WLTEKD=817) Ur Buprenorphine Scrn (CUTOFF=10) Ur Oxycodone Screen (XVU1LZ=751) Urine Methadone Screen (TEO8QR=627) Ur Propoxyphene Screen (BOPNVD=517) Ur Barbiturates Screen (MEJEVI=698) Ur Tricyclics Screen (MYKCYA=012) Ur Phencyclidine Scrn (CUTOFF=25) Ur Amphetamine Screen (TILDGM=548) U Methamphetamines Scrn (NXZWZX=346) U Benzodiazepines Scrn (UJEJDK=215) U Cocaine Metab Screen (MUVENH=799) U Marijuana (THC) Screen (CUTOFF=50) Ethyl Alcohol 0.00 (0.00) gm% SARS-CoV-2 RNA (KETAN) Negative (NEGATIVE) 02/10/21 02/10/21 02/11/21 Range/Units 18:07 18:07 05:34 WBC (4.23-9.07) K/mm3 RBC (4.63-6.08) M/mm3 Hgb (13.7-17.5) gm/dl Hct (40.1-51.0) % MCV (79.0-92.2) fl MCH (25.7-32.2) pg MCHC (32.2-35.5) g/dl RDW Std Deviation (35.1-43.9) fL Plt Count (163-337) K/mm3 MPV (9.4-12.3) fl Neut % (Auto) (34.0-67.9) % Lymph % (Auto) (21.8-53.1) % [place] % (Auto) (5.3-12.2) % Eos % (Auto) (0.8-7.0) Baso % (Auto) (0.1-1.2) % Neut # (Auto) (1.78-5.38) K/mm3 Lymph # (Auto) (1.32-3.57) K/mm3 [place] # (Auto) (0.30-0.82) K/mm3 Eos # (Auto) (0.04-0.54) K/mm3 Baso # (Auto) (0.01-0.08) K/mm3 Sodium 143 (136-145) mEq/L Potassium 3.8 (3.5-5.1) mEq/L Chloride 108 H (98-107) mEq/L Carbon Dioxide 28 (21-32) mEq/L Anion Gap 10.8 (5-15) BUN 7 (7-18) mg/dL Creatinine 0.9 (0.7-1.3) mg/dL Est Cr Clr Drug Dosing 118.63 Estimated GFR (MDRD) > 60 (>60) mL/min BUN/Creatinine Ratio 7.8 L (14-18) Glucose 97 (70-99) mg/dL Calcium 7.5 L (8.5-10.1) mg/dL Phosphorus 3.2 (2.6-4.7) mg/dL Magnesium 2.0 (1.8-2.4) mg/dL Total Bilirubin (0.2-1.0) mg/dL AST (15-37) U/L ALT (16-63) U/L Alkaline Phosphatase (46-116) U/L C-Reactive Protein (<1.0) mg/dL Total Protein (6.4-8.2) g/dl Albumin (3.4-5.0) g/dl Globulin gm/dL Albumin/Globulin Ratio (1-2) Lipase (73-393) U/L Urine Color Light yellow (Yellow) Urine Appearance Clear (Clear) Urine pH 7.0 (5.0-8.0) Ur Specific [place] 1.015 (1.005-1.030) Urine Protein Negative (Negative) Urine Glucose (UA) Negative (Negative) Urine Ketones Negative (Negative) Urine Occult Blood Negative (Negative) Urine Nitrite Negative (Negative) Urine Bilirubin Negative (Negative) Urine Urobilinogen 0.2 (0.2-1.0) Ur Leukocyte Esterase Negative (Negative) Urine RBC 0-5 (0-5) /hpf Urine WBC 0-5 (0-5) /hpf Ur Squamous Epith Cells 0-5 (0-5) /hpf Urine Bacteria Few (FEW) /hpf Urine Mucus Few (FEW) /hpf Urine Opiates Screen Presumptive positive H (YYYAPS=477) Ur Buprenorphine Scrn Negative (CUTOFF=10) Ur Oxycodone Screen Negative (GVY0HU=448) Urine Methadone Screen Negative (TNM3ZS=983) Ur Propoxyphene Screen Negative (YYEMWK=053) Ur Barbiturates Screen Negative (FMIMGP=575) Ur Tricyclics Screen Negative (IBAKJR=739) Ur Phencyclidine Scrn Negative (CUTOFF=25) Ur Amphetamine Screen Presumptive positive H (FAFJVP=683) U Methamphetamines Scrn Presumptive positive H (FWJEOC=465) U Benzodiazepines Scrn Negative (PUAFZW=866) U Cocaine Metab Screen Negative (QMCWRC=776) U Marijuana (THC) Screen Presumptive positive H (CUTOFF=50) Ethyl Alcohol (0.00) gm% SARS-CoV-2 RNA (KETAN) (NEGATIVE) Med Orders - Current: Current Medications Enoxaparin Sodium (Enoxaparin 40 Mg/0.4 Ml Syringe) 40 mg SUBCUT DAILY [facility] Last Admin: 02/11/21 09:29 Dose: Not Given Documented by: Hydromorphone HCl (Hydromorphone 0.5 Mg/0.5 Ml Syringe) 0.5 mg IVPUSH Q4H PRN PRN Reason: Pain (severe 7-10) Lactated Ringer's (Ringers, Lactated) 1,000 mls @ 125 mls/hr IV ASDIRECTED [facility] Last Infusion: 02/11/21 10:15 Dose: 50 mls/hr Documented by: Ondansetron HCl (Ondansetron 4 Mg/2 Ml Sdv) 4 mg IV Q4H PRN PRN Reason: Nausea/Vomiting Pantoprazole Sodium (Pantoprazole 40 Mg Vial) 40 mg IV Q12HR [facility] Last Admin: 02/11/21 09:29 Dose: 40 mg Documented by: Sodium Chloride (Sodium Chloride 0.9% 10 Ml Syringe) 10 ml FLUSH ASDIRECTED PRN PRN Reason: Keep Vein Open Last Admin: 02/10/21 12:59 Dose: 10 ml Documented by: Discontinued Medications Famotidine (Famotidine 20 Mg/2 Ml Sdv) 20 mg IVPUSH ONETIME ONE Stop: 02/10/21 13:10 Last Admin: 02/10/21 13:15 Dose: 20 mg Documented by: Hydromorphone HCl (Hydromorphone 0.5 Mg/0.5 Ml Syringe) 0.5 mg IVPUSH ONETIME ONE Stop: 02/10/21 13:05 Last Admin: 02/10/21 13:15 Dose: 0.5 mg Documented by: Sodium Chloride (Normal Saline) 1,000 mls @ 150 mls/hr IV NOW STA Stop: 02/10/21 19:43 Last Admin: 02/10/21 13:14 Dose: 150 mls/hr Documented by: - Exam General: Alert, Oriented, Cooperative Lungs: Normal Respiratory Effort Cardiovascular: Regular Rate, Regular Rhythm GI/Abdominal Exam: Soft, No Distention, No Mass, Tender (mildly tender to palpation in the lower abdomen bilaterally) - Patient Data Lab Results Last 24 hrs: Laboratory Results - last 24 hr 02/10/21 02/10/21 02/10/21 Range/Units 13:21 13:21 15:50 WBC 5.84 (4.23-9.07) K/mm3 RBC 4.84 (4.63-6.08) M/mm3 Hgb 15.1 (13.7-17.5) gm/dl Hct 45.3 (40.1-51.0) % MCV 93.6 H D (79.0-92.2) fl MCH 31.2 (25.7-32.2) pg MCHC 33.3 (32.2-35.5) g/dl RDW Std Deviation 43.8 (35.1-43.9) fL Plt Count 259 (163-337) K/mm3 MPV 10.2 (9.4-12.3) fl Neut % (Auto) 60.3 (34.0-67.9) % Lymph % (Auto) 28.1 (21.8-53.1) % [place] % (Auto) 9.8 (5.3-12.2) % Eos % (Auto) 1.5 (0.8-7.0) Baso % (Auto) 0.3 (0.1-1.2) % Neut # (Auto) 3.52 (1.78-5.38) K/mm3 Lymph # (Auto) 1.64 (1.32-3.57) K/mm3 [place] # (Auto) 0.57 (0.30-0.82) K/mm3 Eos # (Auto) 0.09 (0.04-0.54) K/mm3 Baso # (Auto) 0.02 (0.01-0.08) K/mm3 Sodium 143 (136-145) mEq/L Potassium 4.8 (3.5-5.1) mEq/L Chloride 108 H (98-107) mEq/L Carbon Dioxide 31 (21-32) mEq/L Anion Gap 8.8 (5-15) BUN 12 (7-18) mg/dL Creatinine 1.0 (0.7-1.3) mg/dL Est Cr Clr Drug Dosing TNP Estimated GFR (MDRD) > 60 (>60) mL/min BUN/Creatinine Ratio 12.0 L (14-18) Glucose 93 (70-99) mg/dL Calcium 8.4 L (8.5-10.1) mg/dL Phosphorus (2.6-4.7) mg/dL Magnesium (1.8-2.4) mg/dL Total Bilirubin 0.6 (0.2-1.0) mg/dL AST 45 H (15-37) U/L ALT 76 H (16-63) U/L Alkaline Phosphatase 103 (46-116) U/L C-Reactive Protein <0.2 (<1.0) mg/dL Total Protein 7.7 (6.4-8.2) g/dl Albumin 3.7 (3.4-5.0) g/dl Globulin 4.0 gm/dL Albumin/Globulin Ratio 0.9 L (1-2) Lipase 120 (73-393) U/L Urine Color (Yellow) Urine Appearance (Clear) Urine pH (5.0-8.0) Ur Specific [place] (1.005-1.030) Urine Protein (Negative) Urine Glucose (UA) (Negative) Urine Ketones (Negative) Urine Occult Blood (Negative) Urine Nitrite (Negative) Urine Bilirubin (Negative) Urine Urobilinogen (0.2-1.0) Ur Leukocyte Esterase (Negative) Urine RBC (0-5) /hpf Urine WBC (0-5) /hpf Ur Squamous Epith Cells (0-5) /hpf Urine Bacteria (FEW) /hpf Urine Mucus (FEW) /hpf Urine Opiates Screen (LFHWDO=072) Ur Buprenorphine Scrn (CUTOFF=10) Ur Oxycodone Screen (ZJO2BD=654) Urine Methadone Screen (ZLP8QB=239) Ur Propoxyphene Screen (UTOZUT=110) Ur Barbiturates Screen (HAUKIL=178) Ur Tricyclics Screen (VHWOUL=279) Ur Phencyclidine Scrn (CUTOFF=25) Ur Amphetamine Screen (UEMZZS=526) U Methamphetamines Scrn (DYIZNR=044) U Benzodiazepines Scrn (SDYHOM=693) U Cocaine Metab Screen (UQZJTK=748) U Marijuana (THC) Screen (CUTOFF=50) Ethyl Alcohol 0.00 (0.00) gm% SARS-CoV-2 RNA (KETAN) Negative (NEGATIVE) 02/10/21 02/10/21 02/11/21 Range/Units 18:07 18:07 05:34 WBC (4.23-9.07) K/mm3 RBC (4.63-6.08) M/mm3 Hgb (13.7-17.5) gm/dl Hct (40.1-51.0) % MCV (79.0-92.2) fl MCH (25.7-32.2) pg MCHC (32.2-35.5) g/dl RDW Std Deviation (35.1-43.9) fL Plt Count (163-337) K/mm3 MPV (9.4-12.3) fl Neut % (Auto) (34.0-67.9) % Lymph % (Auto) (21.8-53.1) % [place] % (Auto) (5.3-12.2) % Eos % (Auto) (0.8-7.0) Baso % (Auto) (0.1-1.2) % Neut # (Auto) (1.78-5.38) K/mm3 Lymph # (Auto) (1.32-3.57) K/mm3 [place] # (Auto) (0.30-0.82) K/mm3 Eos # (Auto) (0.04-0.54) K/mm3 Baso # (Auto) (0.01-0.08) K/mm3 Sodium 143 (136-145) mEq/L Potassium 3.8 (3.5-5.1) mEq/L Chloride 108 H (98-107) mEq/L Carbon Dioxide 28 (21-32) mEq/L Anion Gap 10.8 (5-15) BUN 7 (7-18) mg/dL Creatinine 0.9 (0.7-1.3) mg/dL Est Cr Clr Drug Dosing 118.63 Estimated GFR (MDRD) > 60 (>60) mL/min BUN/Creatinine Ratio 7.8 L (14-18) Glucose 97 (70-99) mg/dL Calcium 7.5 L (8.5-10.1) mg/dL Phosphorus 3.2 (2.6-4.7) mg/dL Magnesium 2.0 (1.8-2.4) mg/dL Total Bilirubin (0.2-1.0) mg/dL AST (15-37) U/L ALT (16-63) U/L Alkaline Phosphatase (46-116) U/L C-Reactive Protein (<1.0) mg/dL Total Protein (6.4-8.2) g/dl Albumin (3.4-5.0) g/dl Globulin gm/dL Albumin/Globulin Ratio (1-2) Lipase (73-393) U/L Urine Color Light yellow (Yellow) Urine Appearance Clear (Clear) Urine pH 7.0 (5.0-8.0) Ur Specific [place] 1.015 (1.005-1.030) Urine Protein Negative (Negative) Urine Glucose (UA) Negative (Negative) Urine Ketones Negative (Negative) Urine Occult Blood Negative (Negative) Urine Nitrite Negative (Negative) Urine Bilirubin Negative (Negative) Urine Urobilinogen 0.2 (0.2-1.0) Ur Leukocyte Esterase Negative (Negative) Urine RBC 0-5 (0-5) /hpf Urine WBC 0-5 (0-5) /hpf Ur Squamous Epith Cells 0-5 (0-5) /hpf Urine Bacteria Few (FEW) /hpf Urine Mucus Few (FEW) /hpf Urine Opiates Screen Presumptive positive H (ONWFTJ=887) Ur Buprenorphine Scrn Negative (CUTOFF=10) Ur Oxycodone Screen Negative (RNF9JX=333) Urine Methadone Screen Negative (BKL8YF=729) Ur Propoxyphene Screen Negative (BDRIDI=424) Ur Barbiturates Screen Negative (MPVAXC=605) Ur Tricyclics Screen Negative (GQEXXM=417) Ur Phencyclidine Scrn Negative (CUTOFF=25) Ur Amphetamine Screen Presumptive positive H (DMURLE=909) U Methamphetamines Scrn Presumptive positive H (PTOMIY=703) U Benzodiazepines Scrn Negative (YCYWIQ=006) U Cocaine Metab Screen Negative (WZNIII=263) U Marijuana (THC) Screen Presumptive positive H (CUTOFF=50) Ethyl Alcohol (0.00) gm% SARS-CoV-2 RNA (KETAN) (NEGATIVE) Result Diagrams: 02/10/21 13:21 02/11/21 05:34 Sepsis Event Note - Evaluation Sepsis Screening Result: No Definite Risk - Focused Exam Vital Signs: Vital Signs Temp Pulse Resp BP Pulse Ox 02/11/21 07:51 97.9 F 67 18 115/67 98 02/11/21 05:06 97.7 F 77 16 120/60 97 02/11/21 00:43 98.4 F 67 14 109/64 96 - Problem List Review Problem List Initiated/Reviewed/Updated: No - My Orders Last 24 Hours: My Active Orders 02/10/21 15:58 Patient Status [ADT] Routine Oxygen Therapy [RC] PRN Up ad Zandra [RC] BID VTE/DVT Education [RC] DAILY Vital Signs [RC] Q4HR HYDROmorphone [Dilaudid] 0.5 mg IVPUSH Q4H PRN Ondansetron [Zofran] 4 mg IV Q4H PRN Resuscitation Status Routine 02/10/21 16:00 Intake and Output [RC] 04,16 Lactated Ringers [Ringers, Lactated] 1,000 ml IV ASDIRECTED Sequential Compression Device [OM.PC] Per Unit Routine 02/10/21 16:01 Antiembolic Devices [RC] BID 02/10/21 21:00 Pantoprazole [ProTONIX IV] 40 mg IV Q12HR 02/11/21 Breakfast Regular Diet [DIET] 02/11/21 09:00 Enoxaparin [Lovenox] 40 mg SUBCUT DAILY 02/12/21 05:11 BASIC METABOLIC PANEL,BMP [CHEM] AM MAGNESIUM [CHEM] AM PHOSPHORUS [CHEM] AM 02/13/21 05:11 BASIC METABOLIC PANEL,BMP [CHEM] AM MAGNESIUM [CHEM] AM PHOSPHORUS [CHEM] AM - Assessment Assessment:: HD1 SBO likely due to gastroenteritis. Abd Xray shows contrast in the colon. - Plan Plan:: Plan - patient is hungry and contrast has passed into colon. We will advance diet to regular. If he can tolerate regular breakfast and regular lunch, then he can return home. - IVF to 50 cc/hr - Patient is agreeable.
[2021-02-11] MEDS ORDERED: Acetaminophen 325 MG Tab PO PRN (11:51)
[2021-02-11 15:50] VITALS: BP 123/65; PULSE 65
--- NOTE | 2021-02-11 16:10 | PCM.DCSUM1 ---
Discharge Summary - Hospital Course Free Text/Narrative:: Patient presented with acute onset of abdominal pain, nausea and vomiting. CT scan revealed non-specific thickening of intestine with concern for SBO likely due to enteritis. Patient was admitted for observation and treated expectantly. Abdominal xray this morning shows contrast within the colon. Patient's abdominal pain is much better. He is hungry. No nausea or vomiting. He tolerated regular diet and was discharged to home. Diagnosis: Stroke: No - Discharge Data Discharge Date: 02/11/21 Discharge Disposition: Home, Self-Care 01 Condition: Good - Referral to Home Health Primary Care Physician: PCP None - Patient Instructions Diet: Heart Healthy Diet Activity: As Tolerated Driving: May Drive Today (If he did not take any opioids in the past 24 hrs) Showering/Bathing: May Shower Notify Provider of: Increased Pain, Nausea and/or Vomiting - Discharge Plan *PRESCRIPTION DRUG MONITORING PROGRAM REVIEWED*: Not Applicable *COPY OF PRESCRIPTION DRUG MONITORING REPORT IN PATIENT SAFIA: Not Applicable Home Medications: Home Meds . [No Known Home Meds] 02/10/21 [History] Oxygen Therapy Mode: Room Air Forms: ED Department Discharge Referrals: PCP,None [Primary Care Provider] - - Discharge Summary/Plan Comment DC Time >30 min.: No Total # of Minutes for Discharge Time: 26 - General Info Date of Service: 02/11/21 Admission Dx/Problem (Free Text: SBO Subjective Update: No nausea or vomiting. He still has some abdominal pain but it is better that it was yesterday Functional Status: Reports: Tolerating Diet, Ambulating, Urinating - Review of Systems General: Reports: No Symptoms HEENT: Reports: No Symptoms Pulmonary: Reports: No Symptoms Cardiovascular: Reports: No Symptoms Gastrointestinal: Reports: Abdominal Pain Genitourinary: Reports: No Symptoms Musculoskeletal: Reports: No Symptoms Skin: Reports: No Symptoms Neurological: Reports: No Symptoms - Patient Data Vitals - Most Recent: Last Vital Signs Temp 97.5 F 02/11/21 15:40 Pulse 65 02/11/21 15:40 Resp 16 02/11/21 15:40 BP 123/65 02/11/21 15:40 Pulse Ox 94 L 02/11/21 15:40 Weight - Most Recent: 73.21 kg I&O - Last 24 hours: Intake & Output 02/11/21 02/11/21 02/11/21 06:59 14:59 22:59 Intake Total 1398 1200 Output Total 9381 5025 Balance 173 -975 Lab Results - Last 24 hrs: Laboratory Results - last 24 hr 02/10/21 02/10/21 02/10/21 Range/Units 15:50 18:07 18:07 Sodium (136-145) mEq/L Potassium (3.5-5.1) mEq/L Chloride (98-107) mEq/L Carbon Dioxide (21-32) mEq/L Anion Gap (5-15) BUN (7-18) mg/dL Creatinine (0.7-1.3) mg/dL Est Cr Clr Drug Dosing mL/min Estimated GFR (MDRD) (>60) mL/min BUN/Creatinine Ratio (14-18) Glucose (70-99) mg/dL Calcium (8.5-10.1) mg/dL Phosphorus (2.6-4.7) mg/dL Magnesium (1.8-2.4) mg/dL Urine Color Light yellow (Yellow) Urine Appearance Clear (Clear) Urine pH 7.0 (5.0-8.0) Ur Specific Severy 1.015 (1.005-1.030) Urine Protein Negative (Negative) Urine Glucose (UA) Negative (Negative) Urine Ketones Negative (Negative) Urine Occult Blood Negative (Negative) Urine Nitrite Negative (Negative) Urine Bilirubin Negative (Negative) Urine Urobilinogen 0.2 (0.2-1.0) Ur Leukocyte Esterase Negative (Negative) Urine RBC 0-5 (0-5) /hpf Urine WBC 0-5 (0-5) /hpf Ur Squamous Epith Cells 0-5 (0-5) /hpf Urine Bacteria Few (FEW) /hpf Urine Mucus Few (FEW) /hpf Urine Opiates Screen Presumptive positive H (UDBZAX=917) Ur Buprenorphine Scrn Negative (CUTOFF=10) Ur Oxycodone Screen Negative (MYV6TJ=132) Urine Methadone Screen Negative (KIT9XA=634) Ur Propoxyphene Screen Negative (AXOBUQ=121) Ur Barbiturates Screen Negative (GKGPLF=644) Ur Tricyclics Screen Negative (ZFIPKK=986) Ur Phencyclidine Scrn Negative (CUTOFF=25) Ur Amphetamine Screen Presumptive positive H (YYOCHB=740) U Methamphetamines Scrn Presumptive positive H (SCNHYJ=244) U Benzodiazepines Scrn Negative (FAURAP=687) U Cocaine Metab Screen Negative (HEVIKG=377) U Marijuana (THC) Screen Presumptive positive H (CUTOFF=50) SARS-CoV-2 RNA (KETAN) Negative (NEGATIVE) 02/11/21 Range/Units 05:34 Sodium 143 (136-145) mEq/L Potassium 3.8 (3.5-5.1) mEq/L Chloride 108 H (98-107) mEq/L Carbon Dioxide 28 (21-32) mEq/L Anion Gap 10.8 (5-15) BUN 7 (7-18) mg/dL Creatinine 0.9 (0.7-1.3) mg/dL Est Cr Clr Drug Dosing 118.63 mL/min Estimated GFR (MDRD) > 60 (>60) mL/min BUN/Creatinine Ratio 7.8 L (14-18) Glucose 97 (70-99) mg/dL Calcium 7.5 L (8.5-10.1) mg/dL Phosphorus 3.2 (2.6-4.7) mg/dL Magnesium 2.0 (1.8-2.4) mg/dL Urine Color (Yellow) Urine Appearance (Clear) Urine pH (5.0-8.0) Ur Specific [place] (1.005-1.030) Urine Protein (Negative) Urine Glucose (UA) (Negative) Urine Ketones (Negative) Urine Occult Blood (Negative) Urine Nitrite (Negative) Urine Bilirubin (Negative) Urine Urobilinogen (0.2-1.0) Ur Leukocyte Esterase (Negative) Urine RBC (0-5) /hpf Urine WBC (0-5) /hpf Ur Squamous Epith Cells (0-5) /hpf Urine Bacteria (FEW) /hpf Urine Mucus (FEW) /hpf Urine Opiates Screen (OGYVNM=971) Ur Buprenorphine Scrn (CUTOFF=10) Ur Oxycodone Screen (DAQ9YY=652) Urine Methadone Screen (UHO1MM=228) Ur Propoxyphene Screen (PTWATN=397) Ur Barbiturates Screen (ZPUWZC=643) Ur Tricyclics Screen (JSVXVU=643) Ur Phencyclidine Scrn (CUTOFF=25) Ur Amphetamine Screen (ZVISAZ=223) U Methamphetamines Scrn (DAMHDU=642) U Benzodiazepines Scrn (PWXJJE=040) U Cocaine Metab Screen (QTGFZR=792) U Marijuana (THC) Screen (CUTOFF=50) SARS-CoV-2 RNA (KETAN) (NEGATIVE) Med Orders - Current: Current Medications Acetaminophen (Acetaminophen 325 Mg Tab) 650 mg PO Q4H PRN PRN Reason: Pain Last Admin: 02/11/21 12:06 Dose: 650 mg Documented by: Enoxaparin Sodium (Enoxaparin 40 Mg/0.4 Ml Syringe) 40 mg SUBCUT DAILY [facility] Last Admin: 02/11/21 09:29 Dose: Not Given Documented by: Hydromorphone HCl (Hydromorphone 0.5 Mg/0.5 Ml Syringe) 0.5 mg IVPUSH Q4H PRN PRN Reason: Pain (severe 7-10) Lactated Ringer's (Ringers, Lactated) 1,000 mls @ 50 mls/hr IV ASDIRECTED [facility] Last Admin: 02/11/21 12:10 Dose: 50 mls/hr Documented by: Ondansetron HCl (Ondansetron 4 Mg/2 Ml Sdv) 4 mg IV Q4H PRN PRN Reason: Nausea/Vomiting Pantoprazole Sodium (Pantoprazole 40 Mg Vial) 40 mg IV Q12HR [facility] Last Admin: 02/11/21 09:29 Dose: 40 mg Documented by: Sodium Chloride (Sodium Chloride 0.9% 10 Ml Syringe) 10 ml FLUSH ASDIRECTED PRN PRN Reason: Keep Vein Open Last Admin: 02/10/21 12:59 Dose: 10 ml Documented by: Discontinued Medications Famotidine (Famotidine 20 Mg/2 Ml Sdv) 20 mg IVPUSH ONETIME ONE Stop: 02/10/21 13:10 Last Admin: 02/10/21 13:15 Dose: 20 mg Documented by: Hydromorphone HCl (Hydromorphone 0.5 Mg/0.5 Ml Syringe) 0.5 mg IVPUSH ONETIME ONE Stop: 02/10/21 13:05 Last Admin: 02/10/21 13:15 Dose: 0.5 mg Documented by: Sodium Chloride (Normal Saline) 1,000 mls @ 150 mls/hr IV NOW STA Stop: 02/10/21 19:43 Last Admin: 02/10/21 13:14 Dose: 150 mls/hr Documented by: Lactated Ringer's (Ringers, Lactated) 1,000 mls @ 125 mls/hr IV ASDIRECTED [facility] Last Infusion: 02/11/21 10:15 Dose: 50 mls/hr Documented by: - Exam General: Reports: Alert, Oriented, Cooperative Lungs: Reports: Clear to Auscultation, Normal Respiratory Effort Cardiovascular: Reports: Regular Rate, Regular Rhythm, No Murmurs GI/Abdominal Exam: Soft, Non-Tender, No Distention, No Mass, Tender (mildly lower abdomen)
== END 2021-02-11 17:52 | disposition home or self-care (01) | DRG 392 ==
LOC: JD.ED 12:56 → JD.OB 15:58 → JD.MS 17:18
PROVIDERS: ADMIT Surgery; ATTEND Surgery
DX: K52.9 Noninfective gastroenteritis and colitis, unspecified (principal); K56.609 Unspecified intestinal obstruction, unspecified as to partial versus complete obstruction; Z20.822 Contact with and (suspected) exposure to COVID-19; F17.210 Nicotine dependence, cigarettes, uncomplicated; Z87.01 Personal history of pneumonia (recurrent)
CPT/HCPCS: 36415; 74018; 74018-26; 74177; 74177-26; 80048; 80053; 80306; 80307; 81001; 83690; 83735; 84100; 85025; 86140; 96374; 96375; 99285; 99285-25; A9270-GY; C9113; J1170; J3490; J7030; J7120; U0002

== ENCOUNTER 2022-08-06 10:14 | Emergency (ER) | payer MEDICAID ==
[2022-08-06] MEDS ORDERED: Acetaminophen 325 MG Tab PO ONE (11:08)
[2022-08-06] MEDS ORDERED: Metoclopramide 10 MG Tab PO ONE (11:10)
[2022-08-06] MEDS ORDERED: diphenhydrAMINE 25 MG Cap PO ONE (11:11)
[2022-08-06 14:28] VITALS: BP 114/76; PULSE 87
== END 2022-08-06 13:35 | disposition home or self-care (01) ==
LOC: JD.ED 10:14
DX: G43.909 Migraine, unspecified, not intractable, without status migrainosus (principal)
CPT/HCPCS: 99283; A9270

== ENCOUNTER 2023-05-30 10:26 | Emergency (ER) | payer SELFPAY ==
[2023-05-30] MEDS ORDERED: cefTRIAXone 2 GM in Sodium Chloride 0.9% 100 ML IV ONE (11:08)
[2023-05-30] MEDS ORDERED: Sodium Chloride 0.9% 10 ML Syringe FLUSH PRN (11:08)
[2023-05-30 11:52] LABS: BASOPHILS PERCENT AUTO 0.6 % (0.0-1.0); EOSINOPHILS ABSOLUTE AUTO 0.1 K/mm3 (0.0-0.4); HEMATOCRIT 41.5 % (42.0-52.0); HEMOGLOBIN 14.4 gm/dl (14.0-18.0); IMMATURE GRAN ABSOLUTE AUTO 0.01 K/mm3 (0.00-0.05); IMMATURE GRAN PERCENT AUTO 0.1 % (0.0-0.4); LYMPHOCYTES ABSOLUTE AUTO 1.7 K/mm3 (1.0-4.8); LYMPHOCYTES PERCENT AUTO 24.8 % (24.0-44.0); MEAN CORPUSCULAR HEMOGLOBIN 31.8 pg (28.0-32.0); MEAN CORPUSCULAR HGB CONC 34.7 g/dl (32.0-36.0); MEAN CORPUSCULAR VOLUME 91.6 fl (83.0-99.0); MEAN PLATELET VOLUME 9.8 fl (9.4-12.4); MONOCYTES ABSOLUTE AUTO 0.8 K/mm3 (0.0-0.8); NEUTROPHILS ABSOLUTE AUTO 4.3 K/mm3 (1.8-7.7); NEUTROPHILS PERCENT AUTO 62.5 % (41.0-71.0); PLATELET COUNT,PLT 244 K/mm3 (150-400); RED BLOOD CELL COUNT 4.53 M/mm3 (4.52-5.90); WHITE BLOOD CELL COUNT,WBC 6.93 K/mm3 (3.9-11.3)
[2023-05-30 12:07] LABS: A/G RATIO 1.1 (1-2); ALBUMIN 3.8 g/dl (3.4-5.0); ANION GAP 15.1 (5-15); BILIRUBIN TOTAL 0.9 mg/dL (0.2-1.0); CALCIUM 8.6 mg/dL (8.5-10.1); EST CRCL DRUG DOSING (CG) 111.01 mL/min; MAGNESIUM 2.1 mg/dL (1.8-2.4); POTASSIUM,K 4.1 mEq/L (3.5-5.1); PROTEIN TOTAL,TP 7.4 g/dl (6.4-8.2)
[2023-05-30 14:26] VITALS: BP 129/89; PULSE 87
== END 2023-05-30 14:18 | disposition home or self-care (01) ==
LOC: JD.ED 10:26
DX: L03.011 Cellulitis of right finger (principal); F17.210 Nicotine dependence, cigarettes, uncomplicated
CPT/HCPCS: 36415; 73140; 80053; 83735; 85025; 96365; 99283; J0696; J3490

== ENCOUNTER 2023-06-20 22:28 | Emergency (ER) | payer SELFPAY ==
[2023-06-20] MEDS ORDERED: LORazepam 2 MG/ML SDV ONE (22:35)
[2023-06-20] MEDS ORDERED: Dextrose 5%-0.9% NaCl 1,000 ML IV SCH (22:45)
[2023-06-20 23:00] LABS: BASOPHILS PERCENT AUTO 0.5 % (0.0-1.0); EOSINOPHILS ABSOLUTE AUTO 0.1 K/mm3 (0.0-0.4); EOSINOPHILS PERCENT AUTO 0.9 % (0.0-6.0); HEMATOCRIT 38.7 % (42.0-52.0); HEMOGLOBIN 13.6 gm/dl (14.0-18.0); IMMATURE GRAN ABSOLUTE AUTO 0.01 K/mm3 (0.00-0.05); IMMATURE GRAN PERCENT AUTO 0.2 % (0.0-0.4); LYMPHOCYTES ABSOLUTE AUTO 1.6 K/mm3 (1.0-4.8); LYMPHOCYTES PERCENT AUTO 27.8 % (24.0-44.0); MEAN CORPUSCULAR HEMOGLOBIN 32.2 pg (28.0-32.0); MEAN CORPUSCULAR HGB CONC 35.1 g/dl (32.0-36.0); MEAN CORPUSCULAR VOLUME 91.7 fl (83.0-99.0); MEAN PLATELET VOLUME 9.8 fl (9.4-12.4); MONOCYTES ABSOLUTE AUTO 0.5 K/mm3 (0.0-0.8); MONOCYTES PERCENT AUTO 8.5 % (0.0-8.0); NEUTROPHILS ABSOLUTE AUTO 3.6 K/mm3 (1.8-7.7); NEUTROPHILS PERCENT AUTO 62.1 % (41.0-71.0); PLATELET COUNT,PLT 217 K/mm3 (150-400); RED BLOOD CELL COUNT 4.22 M/mm3 (4.52-5.90); WHITE BLOOD CELL COUNT,WBC 5.79 K/mm3 (3.9-11.3)
[2023-06-20 23:22] LABS: ALANINE AMINOTRANSFERASE,ALT 61 U/L (16-63); ALBUMIN 3.5 g/dl (3.4-5.0); ALKALINE PHOSPHATASE 99 U/L (46-116); ANION GAP 12.4 (5-15); ASPARTATE AMNIOTRANSFERASE,AST 39 U/L (15-37); BILIRUBIN TOTAL 0.7 mg/dL (0.2-1.0); BLOOD UREA NITROGEN,BUN 19 mg/dL (7-18); BUN/CREATININE RATIO 17.3 (14-18); C-REACTIVE PROTEIN <0.2 mg/dL (<1.0); CALCIUM 8.2 mg/dL (8.5-10.1); CARBON DIOXIDE,CO2 26 mEq/L (21-32); CHLORIDE,CL 105 mEq/L (98-107); CREATININE 1.1 mg/dL (0.7-1.3); ESTIMATED GFR 89 mL/min (>60); GLUCOSE RANDOM 117 mg/dL (70-99); POTASSIUM,K 3.4 mEq/L (3.5-5.1); SODIUM,NA 140 mEq/L (136-145)
[2023-06-20 23:24] LABS: BARBITURATE SCREEN,URINE NEGATIVE (CUTOFF=200); BENZODIAZEPINES SCREEN,URINE NEGATIVE (CUTOFF=150); BUPRENORPHINE SCREEN,URINE NEGATIVE (CUTOFF=10); METHADONE SCREEN, URINE NEGATIVE (CUT0FF=200); METHAMPHETAMINES SCREEN, URINE PRESUMPTIVE POSITIVE (CUTOFF=500); OXYCODONE SCREEN,URINE NEGATIVE (CUT0FF=100); THC SCREEN,URINE 20 NG/ML PRESUMPTIVE POSITIVE (CUTOFF=50)
[2023-06-20] MEDS ORDERED: LORazepam 2 MG/ML SDV IVPUSH ONE (23:35)
[2023-06-20 23:36] LABS: AMPHETAMINES SCREEN, URINE PRESUMPTIVE POSITIVE (CUTOFF=500)
[2023-06-21] MEDS ORDERED: LORazepam 2 MG/ML SDV ONE (01:57)
[2023-06-21] MEDS ORDERED: LORazepam 2 MG/ML SDV IVPUSH ONE ×2 (02:00→03:50)
[2023-06-21 15:16] VITALS: BP 121/84; PULSE 61
== END 2023-06-21 15:10 | disposition home or self-care (01) ==
LOC: JD.ED 22:28
DX: F15.10 Other stimulant abuse, uncomplicated (principal)
CPT/HCPCS: 36415; 80053; 80306; 80307; 85025; 86140; 96361; 96374; 96376; 99285; J2060; J7042

== ENCOUNTER 2023-06-28 16:45 | Emergency (ER) | payer SELFPAY ==
[2023-06-28] MEDS ORDERED: Sodium Chloride 0.9% 10 ML Syringe FLUSH PRN (17:18)
[2023-06-28] MEDS ORDERED: Ketorolac 30 MG/ML SDV IVPUSH ONE (18:03)
[2023-06-28 18:23] LABS: BASOPHILS PERCENT AUTO 0.4 % (0.0-1.0); EOSINOPHILS ABSOLUTE AUTO 0.1 K/mm3 (0.0-0.4); EOSINOPHILS PERCENT AUTO 0.8 % (0.0-6.0); HEMATOCRIT 48.5 % (42.0-52.0); HEMOGLOBIN 16.5 gm/dl (14.0-18.0); IMMATURE GRAN ABSOLUTE AUTO 0.03 K/mm3 (0.00-0.05); IMMATURE GRAN PERCENT AUTO 0.3 % (0.0-0.4); LYMPHOCYTES ABSOLUTE AUTO 1.5 K/mm3 (1.0-4.8); LYMPHOCYTES PERCENT AUTO 16.2 % (24.0-44.0); MEAN CORPUSCULAR HEMOGLOBIN 32.2 pg (28.0-32.0); MEAN CORPUSCULAR VOLUME 94.7 fl (83.0-99.0); MEAN PLATELET VOLUME 10.1 fl (9.4-12.4); MONOCYTES ABSOLUTE AUTO 0.8 K/mm3 (0.0-0.8); MONOCYTES PERCENT AUTO 8.3 % (0.0-8.0); NEUTROPHILS ABSOLUTE AUTO 6.8 K/mm3 (1.8-7.7); PLATELET COUNT,PLT 250 K/mm3 (150-400); RED BLOOD CELL COUNT 5.12 M/mm3 (4.52-5.90); WHITE BLOOD CELL COUNT,WBC 9.17 K/mm3 (3.9-11.3)
[2023-06-28 18:28] LABS: APPEARANCE,URINE CLEAR (Clear); BILIRUBIN,URINE NEGATIVE (Negative); COLOR,URINE YELLOW (Yellow); GLUCOSE,URINE NEGATIVE (Negative); KETONES,URINE NEGATIVE (Negative); LEUKOCYTE ESTERASE,URINE NEGATIVE (Negative); NITRITE,URINE NEGATIVE (Negative); OCCULT BLOOD,URINE NEGATIVE (Negative); PROTEIN,URINE NEGATIVE (Negative); UROBILINOGEN,URINE 0.2 (0.2-1.0)
[2023-06-28] MEDS ORDERED: Lidocaine 2% with EPINEPHrine 1:200,000 20 ML SDV INJECT ONE (18:28)
[2023-06-28 18:34] LABS: BARBITURATE SCREEN,URINE NEGATIVE (CUTOFF=200); BENZODIAZEPINES SCREEN,URINE NEGATIVE (CUTOFF=150); BUPRENORPHINE SCREEN,URINE NEGATIVE (CUTOFF=10); METHADONE SCREEN, URINE NEGATIVE (CUT0FF=200); METHAMPHETAMINES SCREEN, URINE PRESUMPTIVE POSITIVE (CUTOFF=500); OXYCODONE SCREEN,URINE NEGATIVE (CUT0FF=100); THC SCREEN,URINE 20 NG/ML NEGATIVE (CUTOFF=50)
[2023-06-28 18:35] LABS: AMPHETAMINES SCREEN, URINE PRESUMPTIVE POSITIVE (CUTOFF=500)
[2023-06-28 18:39] LABS: BACTERIA,URINE FEW /hpf (FEW); EPITHELIAL CELLS,URINE NOT SEEN /hpf (0-5); HYALINE CASTS,URINE 0-5 /lpf (0-5); MUCUS,URINE NOT SEEN /hpf (FEW); RBC,URINE 0-5 /hpf (0-5); WBC,URINE 0-5 /hpf (0-5)
[2023-06-28 18:44] LABS: A/G RATIO 0.9 (1-2); ALBUMIN 3.6 g/dl (3.4-5.0); ANION GAP 6.5 (5-15); BILIRUBIN TOTAL 0.5 mg/dL (0.2-1.0); CALCIUM 8.9 mg/dL (8.5-10.1); EST CRCL DRUG DOSING (CG) 111.01 mL/min; MAGNESIUM 2.1 mg/dL (1.8-2.4); POTASSIUM,K 4.5 mEq/L (3.5-5.1); PROTEIN TOTAL,TP 7.6 g/dl (6.4-8.2)
[2023-06-28 19:28] VITALS: BP 93/80; PULSE 67
== END 2023-06-28 19:08 | disposition home or self-care (01) ==
LOC: JD.ED 16:45
DX: S51.812A Laceration without foreign body of left forearm, initial encounter (principal); F17.210 Nicotine dependence, cigarettes, uncomplicated; Y04.8XXA Assault by other bodily force, initial encounter; Z86.16 Personal history of COVID-19
CPT/HCPCS: 12002; 36415; 71250; 72128; 73090; 80053; 80306; 80307; 81001; 83735; 85025; 96374; 99284; J1885; J3490

== ENCOUNTER 2023-07-16 13:40 | Emergency (ER) | payer SELFPAY ==
[2023-07-16 14:05] VITALS: BP 121/67; PULSE 84
== END 2023-07-16 14:02 ==
LOC: JD.ED 13:40
DX: S61.512D Laceration without foreign body of left wrist, subsequent encounter (principal); Z48.02 Encounter for removal of sutures
CPT/HCPCS: 99281

== ENCOUNTER 2024-05-12 09:40 | Emergency (ER) | payer SELFPAY ==
[2024-05-12] MEDS: Diphtheria,Pertussis(Acell),Tetanus Vaccine 0.5 ML Syringe IM ONE (11:08)
[2024-05-12] MEDS: Ketorolac 30 MG/ML SDV IM ONE (11:08)
[2024-05-12 15:30] VITALS: BP 112/79; PULSE 85
== END 2024-05-12 12:15 | disposition home or self-care (01) ==
LOC: JD.ED 09:40
DX: S91.331A Puncture wound without foreign body, right foot, initial encounter (principal); F17.210 Nicotine dependence, cigarettes, uncomplicated; Z86.16 Personal history of COVID-19; Z23 Encounter for immunization; W45.0XXA Nail entering through skin, initial encounter
CPT/HCPCS: 73620; 90471; 90715; 96372; 99283; J1885; 99284

== ENCOUNTER 2024-08-11 18:16 | Emergency (ER) | payer SELFPAY ==
[2024-08-11 19:06] VITALS: BP 127/62; PULSE 86
[2024-08-11] MEDS: cefTRIAXone 1 GM, Lidocaine 1% 2.1 ML IM ONE (19:35)
[2024-08-11] MEDS: Ketorolac 30 MG/ML SDV IM ONE (19:36)
== END 2024-08-11 19:49 | disposition home or self-care (01) ==
LOC: JD.ED 18:16
DX: L03.011 Cellulitis of right finger (principal); Z86.16 Personal history of COVID-19; Z87.891 Personal history of nicotine dependence
CPT/HCPCS: 87070; 87205; 96372; 99283; J0696; J1885; J3490